=== PATIENT | female | born 1990 | race Two or more races ===

== ENCOUNTER 2017-01-28 12:45 | Inpatient (IN) | payer MEDICAID ==
[~2017-01-28] VITALS: Ht 157.5 cm; Wt 48.1 kg
--- NOTE | 2017-01-28 12:51 | Emergency Room Report ---
History of Present Illness General Chief Complaint: Dyspnea/Respdistress Source: Family Member, Medical Record, EMS Present Illness HPI 18-year-old female, history of GBM, bedbound, baseline mental status confused, PEG tube, coming from senior care for hypoxia. EMS states that nursing staff saw that patient was hypoxic on room air, around 85, improved to 99% with a nonrebreather. Denies any known fever chills nausea vomiting. Patient is DNR/DNI and comfort measures only Allergies: Coded Allergies: No Known Allergies (Unverified , 01/28/17) Patient History Limited by: medical condition Past Medical History: see triage record Past Surgical History: unable to obtain Pertinent Family History: unable to obtain Reviewed Nursing Documentation: PMH: Agreed, PSxH: Agreed Nursing Documentation-PMH Hx Seizures: Yes Review of Systems All Other Systems: limited Physical Exam Vital Signs Date Time Temp Pulse Resp B/P (MAP) Pulse Ox O2 Delivery O2 Flow Rate FiO2 01/28/17 12:41 111 24 106/66 94 Non-Rebreather 15.0 Sp02 EP Interpretation: abnormal - Hypoxic at 88 on room air, 96% on 3 L nasal cannula General Appearance: lethargic, other - Chronically ill-appearing young female, appears to be in respiratory distress, nonverbal however moving extremities on command Head: normocephalic, atraumatic Eyes: bilateral eye normal inspection, bilateral eye PERRL, bilateral eye EOMI ENT: normal ENT inspection, normal pharynx, dry mucus membranes Neck: normal inspection, full range of motion, supple Respiratory: other - Course breath sounds in left lung base, chest symmetrical Cardiovascular #1: normal inspection, normal capillary refill, tachycardia Cardiovascular #2: 2+ radial (R), 2+ radial (L) Gastrointestinal: non-distended, no guarding, other - Soft, nondistended, PEG tube in place, no grimace to deep palpation Musculoskeletal: back normal, non-tender Neurologic: alert, motor strength/tone normal, sensory intact, other - Moaning sounds, moving extremities on command Skin: normal inspection, normal color, no rash, warm/dry, normal turgor Procedures Critical Care Time Critical Care Time 40 minutes of CC time 26YO female with resp distress and hypoxia VS: Tachycardic, tachypneic, hypoxic Sepsis criteria met Airway patent. PLAN: IV access, labs, lactate, Blood/Urine Cx, Abx Anticipate admissionto Tele vs. ROSANA CC time also includes review of labs, review of EMR, discussion with family and paperwork from SNF, d/w hospitalist CC could include dosing of pressors, additional Abx CC time does not include procedures Medical Decision Making Diagnostic Impression: Primary Impression: Respiratory distress Additional Impression: Hypoxia ER Course 18-year-old female with respiratory distress, hypoxia Differential diagnosis Sepsis, UTI, pneumonia DNR/DNI ER course: afebrile rectally 97 Hypoxic on room air, 96% on 3 L nasal cannula Patient given NS at 30cc/kg bolus Patient's BP has remained stable with MAP > 65 CXR cannot r/o L sided infiltrate, insetting of hypoxia and leukocytosis will tx as pneumonia attempted to call patients PMD Dr Slade who did not pecan picker phone. Disposition: Patient will admitted to TELE Patient requires close monitoring of respiratory/hemodynamic status and continuation of IV antibiotics. D/W Hospitalist Dr Armando who covers for patients SNF, accepted admission Please note that this Emergency Department Report was dictated using [employer] carrier technology software, occasionally this can lead to erroneous entry secondary to interpretation by the dictation equipment. Laboratory Tests Test 01/28/17 12:53 01/28/17 13:20 White Blood Count 16.5 K/UL (4.8-10.8) H Red Blood Count 3.98 M/UL (4.20-5.40) L Hemoglobin 13.5 G/DL (12.0-16.0) Hematocrit 39.6 % (37.0-47.0) Mean Corpuscular Volume 99 FL (80-99) Mean Corpuscular Hemoglobin 33.8 PG (27.0-31.0) H Mean Corpuscular Hemoglobin Concent 34.0 G/DL (32.0-36.0) Red Cell Distribution Width 14.2 % (11.6-14.8) Platelet Count 396 K/UL (150-450) Mean Platelet Volume 5.8 FL (6.5-10.1) L Neutrophils (%) (Auto) 78.3 % (45.0-75.0) H Lymphocytes (%) (Auto) 17.4 % (20.0-45.0) L Monocytes (%) (Auto) 3.7 % (1.0-10.0) Eosinophils (%) (Auto) 0.0 % (0.0-3.0) Basophils (%) (Auto) 0.5 % (0.0-2.0) Sodium Level 133 mEQ/L (135-145) L Potassium Level 3.8 mEQ/L (3.4-4.9) Chloride Level 92 mEQ/L (98-107) L Carbon Dioxide Level 27 mEQ/L (20-30) Anion Gap 14 (5-15) Blood Urea Nitrogen 14 mg/dL (7-23) Creatinine 0.4 mg/dL (0.5-0.9) L Estimate Glomerular Filtration Rate > 60 mL/min (>60) Glucose Level 138 mg/dL (74-106) H Lactic Acid Level 2.40 mmol/L (0.66-2.22) H Calcium Level 9.8 mg/dL (8.6-10.2) Total Bilirubin 0.3 mg/dL (0.0-1.2) Aspartate Amino Transferase (AST) 16 U/L (5-40) Alanine Aminotransferase (ALT) 29 U/L (3-33) Alkaline Phosphatase 88 U/L (35-104) Total Creatine Kinase 29 U/L (26-140) Creatine Kinase MB Pending Troponin I < 0.30 ng/mL (<=0.30) Total Protein 7.4 g/dL (6.6-8.7) Albumin 4.1 g/dL (3.5-5.2) Globulin 3.3 g/dL Albumin/Globulin Ratio 1.2 (1.0-2.7) Urine Color Pending Urine Appearance Pending Urine pH Pending Urine Specific [place] Pending Urine Protein Pending Urine Glucose (UA) Pending Urine Ketones Pending Urine Occult Blood Pending Urine Nitrite Pending Urine Bilirubin Pending Urine Urobilinogen Pending Urine Leukocyte Esterase Pending EKG Diagnostic Results Rate: tachycardiac Rhythm: NSR ST Segments: other - Q waves inf leads Rhythm Strip Diag. Results EP Interpretation: yes Rate: 95 Rhythm: NSR, no PVC's, no ectopy Chest X-Ray Diagnostic Results Chest X-Ray Diagnostic Results : Chest X-Ray Ordered: Yes # of Views/Limited/Complete: 1 View Indication: Shortness of Breath Interpretation: no consolidation, other - L hemidiaphragm elevation, cannot r/o L sided infiltrate Impression: Other - L hemidiaphragm elevation, cannot r/o L sided infirlate Electronically Signed by: Electronically signed by Chapin Miramontes MD Last Vital Signs Date Time Temp Pulse Resp B/P (MAP) Pulse Ox O2 Delivery O2 Flow Rate FiO2 01/28/17 12:41 111 24 106/66 94 Non-Rebreather 15.0 Disposition: ADMITTED INPATIENT Condition: Serious Chapin Miramontes M.D. Jan 28, 2017 12:51
[2017-01-28] MEDS ORDERED: NS 1000ml 1,600 ML IVLG ONE (13:00)
[2017-01-28] MEDS ORDERED: KEPPRA LIQ100 MG/1 M GT (13:03)
[2017-01-28] MEDS ORDERED: DOCU LIQUI50 MG/5 M1 GT (13:03)
[2017-01-28] MEDS ORDERED: ACETAMINOPHEN325 M1 GT (13:03)
[2017-01-28] MEDS ORDERED: DULCOLAX10 MG RC (13:03)
[2017-01-28] MEDS ORDERED: LORATADINE5 MG/5 M4 GT (13:03)
[2017-01-28] MEDS ORDERED: DECADRON0.25 MG/2. GT (13:03)
[2017-01-28] MEDS ORDERED: BETHANECHOL CHLO5 MG GT (13:03)
[2017-01-28] MEDS ORDERED: MILK OF MA2400 MG/10 GT (13:03)
[2017-01-28] MEDS ORDERED: FLEET ENEMA133 ML RECTAL (13:03)
[2017-01-28] MEDS ORDERED: ACETAMINOPHEN120 MG RECTAL (13:03)
[2017-01-28] MEDS ORDERED: HYDROCODON-ACE1 EA15 ORAL (13:03)
[2017-01-28] MEDS ORDERED: HEPARIN SO5000 UNIT2 SUBQ (13:03)
[2017-01-28] MEDS ORDERED: DOXAZOSIN MESYLA1 MG GT (13:03)
[2017-01-28] MEDS ORDERED: METAMUCIL660 GM GT (13:12)
[2017-01-28] MEDS ORDERED: NORCO 5-325 TA1 EACH (13:12)
[2017-01-28] MEDS ORDERED: LEXAPRO10 MG GT (13:12)
[2017-01-28] MEDS ORDERED: ZANTAC150 MG GT (13:12)
[2017-01-28] MEDS ORDERED: PROVENTIL HFA6.7 G1 IH (13:12)
[2017-01-28 13:16] LABS: BASOPHILS % (AUTO) 0.5 % (0.0-2.0); LYMPHOCYTES % (AUTO) 17.4 % (20.0-45.0); MEAN CORPUSCULAR HEMOGLOBIN 33.8 PG (27.0-31.0); MEAN CORPUSCULAR VOLUME 99 FL (80-99); MEAN PLATELET VOLUME 5.8 FL (6.5-10.1); MONOCYTES % (AUTO) 3.7 % (1.0-10.0); NEUTROPHILS % (AUTO) 78.3 % (45.0-75.0); PLATELET COUNT 396 K/UL (150-450); RED BLOOD COUNT 3.98 M/UL (4.20-5.40); RED CELL DISTRIBUTION WIDTH 14.2 % (11.6-14.8); WHITE BLOOD COUNT 16.5 K/UL (4.8-10.8)
[2017-01-28] MEDS ORDERED: JEVITY 1.5 CA1000 ML GT (13:23)
[2017-01-28] MEDS ORDERED: AUGMENTIN 875-1 EAC1 GT (13:23)
--- NOTE | 2017-01-28 13:24 | Diagnostic Imaging Report ---
Indication: SOB Technique: One view of the chest Comparison: none Findings: There is pleural fluid at the left lung base. There may be some parenchymal consolidation as well. The right lung and pleural space are clear. Heart is mildly enlarged. Impression: Left-sided pleural effusion. Possible underlying parenchymal consolidation graph mild Cardiolite
[2017-01-28 13:25] VITALS: BP 122/69
[2017-01-28 13:25] LABS: TROPONIN I < 0.30 ng/mL (<=0.30)
[2017-01-28 13:28] LABS: ALANINE AMINOTRANSFERASE 29 U/L (3-33); ALBUMIN/GLOBULIN RATIO 1.2 (1.0-2.7); ANION GAP 14 (5-15); ASPARTATE AMINO TRANSFERASE 16 U/L (5-40); CALCIUM 9.8 mg/dL (8.6-10.2); CARBON DIOXIDE 27 mEQ/L (20-30); CHLORIDE 92 mEQ/L (98-107); CREATININE 0.4 mg/dL (0.5-0.9); GLOMERULAR FILTRATION RATE > 60 mL/min (>60); HEMOLYSIS 0; POTASSIUM 3.8 mEQ/L (3.4-4.9); SODIUM 133 mEQ/L (135-145); TOTAL PROTEIN 7.4 g/dL (6.6-8.7)
[2017-01-28] MEDS ORDERED: Piperacillin/Tazobactam 3.375 GM in NS 110 ML IVPB ONE (13:30)
[2017-01-28] MEDS ORDERED: Vancomycin 1250mg/D5W 250ml 250 ML IVPB ONE (13:30)
[2017-01-28 13:31] LABS: REFLEX LACTIC ACID YES OR NO YES
[2017-01-28] MEDS ORDERED: Zosyn 3.375gm inj ONE (13:31)
[2017-01-28 13:38] LABS: CKMB 2.2 ng/mL (< 3.8)
[2017-01-28 13:42] LABS: APPEARANCE,URINE CLOUDY; KETONES,URINE NEGATIVE (NEGATIVE); LEUKOCYTE ESTERASE ,URINE 3+ (NEGATIVE); NITRITE,URINE NEGATIVE (NEGATIVE); PH,URINE 7 (4.5-8.0); PROTEIN,URINE 1+ (NEGATIVE); UROBILINOGEN,URINE 1 MG/DL (0.0-1.0)
[2017-01-28 13:53] LABS: BACTERIA,URINE MANY /HPF; RBC,URINE 15-20 /HPF (0 - 2); SQUAMOUS EPITHELIAL CELL,UR OCCASIONAL /LPF (NONE/OCC)
[2017-01-28 13:54] LABS: AMORPHOUS SEDIMENT,UR MODERATE /LPF; CALCIUM OXALATE CRYSTALS,UR OCCASIONAL /LPF; MUCUS,URINE FEW /LPF (NONE/OCC); YEAST,URINE MODERATE /HPF
[2017-01-28 14:21] LABS: ABG ALLEN TEST POSITIVE; ABG BASE EXCESS -3.1; ABG PCO2 40.3 mmHg (35.0-45.0)
[2017-01-28 14:38] VITALS: BP 148/88
--- NOTE | 2017-01-28 14:56 | History and Physical ---
History of Present Illness General Date patient seen: Jan 29, 2017 Reason for Hospitalization: Dyspnea/Respdistress Present Illness HPI 18-year-old female with history of GBM, bedbound, baseline mental status confused, PEG tube, coming from long-term for hypoxia. EMS states that nursing staff saw that patient was hypoxic on room air, around 85, improved to 99% with a nonrebreather. Pt was diagnosed to have pneumonia and sepsis and admitted for further evaluation. Allergies: Coded Allergies: No Known Allergies (Unverified , 01/28/17) Medication History Scheduled Amoxicillin/Potassium Clav 875-125* (Augmentin 875-125 Tablet*), 1 TAB GT TWICE A DAY, (Reported) Bethanechol Chl* (Bethanechol Chloride*), 5 MG GT THREE TIMES A DAY, (Reported) Bisacodyl (Dulcolax), 10 MG RC DAILY, (Reported) Dexamethasone (Dexamethasone), 2 MG GT BID, (Reported) Docusate Sodium (Docu Liquid), 100 MG GT BID, (Reported) Doxazosin Mesylate* (Doxazosin Mesylate*), 1 MG GT DAILY, (Reported) Escitalopram Oxalate* (Lexapro*), 10 MG GT DAILY, (Reported) Heparin Sod (Porcine) (Heparin Sodium*), 5,000 UNITS SUBQ EVERY 12 HOURS, ( Reported) Levetiracetam (Keppra), 1,000 MG GT BID, (Reported) Loratadine (Loratadine), 10 MG GT DAILY, (Reported) Magnesium Hydroxide* (Milk Of Magnesia*), 30 ML GT DAILY, (Reported) Na Phos,M-B/Na Phos,Di-Ba* (Fleet Enema*), 133 ML RECTAL DAILY, (Reported) Psyllium Husk (Metamucil), 15 ML GT DAILY, (Reported) Ranitidine Hcl* (Zantac*), 300 MG GT TWICE A DAY, (Reported) Scheduled PRN Acetaminophen* (Acetaminophen 325MG Tablet*), 650 MG GT Q6H PRN for Mild Pain ( Pain Scale 1-3), (Reported) Acetaminophen* (Tylenol*), 650 MG RECTAL Q6HR PRN for Mild Pain/Temp > 100.5, ( Reported) Albuterol Sulfate (Proventil Hfa), 6.7 GM IH EVERY 6 HOURS PRN for Shortness of Breath, (Reported) Hydrocodone Bit/Acetaminophen 5-325* ([place] 5-325*), 2 TAB Q4H PRN for For Pain, (Reported) Hydrocodone/Acetaminophen 5-325* (Hydrocodone/Acetaminophen 5-325*), 1 TAB ORAL Q4H PRN for For Pain, (Reported) Miscellaneous Medications Lactose-Reduced Food/Fiber (Jevity 1.5 Rick Liquid), 60 ML GT, (Reported) Patient History Healthcare decision maker JAMESKYLE PRINCELES (MOTHER) Resuscitation status Advanced Directive on File Past Medical/Surgical History Past Medical/Surgical History: (1) Glioblastoma (2) Feeding by G-tube Review of Systems All Other Systems: negative except mentioned in HPI Physical Exam General Appearance: WD/WN Lines, tubes and drains: peripheral HEENT: normocephalic, atraumatic Neck: non-tender, normal alignment Respiratory/Chest: chest wall non-tender, lungs clear Cardiovascular/Chest: normal peripheral pulses, normal rate Abdomen: normal bowel sounds, soft Genitourinary/Rectal: normal genital exam, normal prostate exam Extremities: normal range of motion, non-tender Last 24 Hour Vital Signs Date Time Temp Pulse Resp B/P (MAP) Pulse Ox O2 Delivery O2 Flow Rate FiO2 01/28/17 13:25 97.9 94 14 122/69 96 Nasal Cannula 3.0 01/28/17 12:51 94 16 Nasal Cannula 3.0 01/28/17 12:41 97.9 111 24 106/66 94 Non-Rebreather 15.0 Laboratory Tests Test 01/28/17 12:53 01/28/17 13:20 01/28/17 14:09 01/28/17 14:10 White Blood Count 16.5 K/UL (4.8-10.8) H Red Blood Count 3.98 M/UL (4.20-5.40) L Hemoglobin 13.5 G/DL (12.0-16.0) Hematocrit 39.6 % (37.0-47.0) Mean Corpuscular Volume 99 FL (80-99) Mean Corpuscular Hemoglobin 33.8 PG (27.0-31.0) H Mean Corpuscular Hemoglobin Concent 34.0 G/DL (32.0-36.0) Red Cell Distribution Width 14.2 % (11.6-14.8) Platelet Count 396 K/UL (150-450) Mean Platelet Volume 5.8 FL (6.5-10.1) L Neutrophils (%) (Auto) 78.3 % (45.0-75.0) H Lymphocytes (%) (Auto) 17.4 % (20.0-45.0) L Monocytes (%) (Auto) 3.7 % (1.0-10.0) Eosinophils (%) (Auto) 0.0 % (0.0-3.0) Basophils (%) (Auto) 0.5 % (0.0-2.0) Sodium Level 133 mEQ/L (135-145) L Potassium Level 3.8 mEQ/L (3.4-4.9) Chloride Level 92 mEQ/L (98-107) L Carbon Dioxide Level 27 mEQ/L (20-30) Anion Gap 14 (5-15) Blood Urea Nitrogen 14 mg/dL (7-23) Creatinine 0.4 mg/dL (0.5-0.9) L Estimat Glomerular Filtration Rate > 60 mL/min (>60) Glucose Level 138 mg/dL (74-106) H Lactic Acid Level 2.40 mmol/L (0.66-2.22) H 3.30 mmol/L (0.66-2.22) H Calcium Level 9.8 mg/dL (8.6-10.2) Total Bilirubin 0.3 mg/dL (0.0-1.2) Aspartate Amino Transf (AST/SGOT) 16 U/L (5-40) Alanine Aminotransferase (ALT/SGPT) 29 U/L (3-33) Alkaline Phosphatase 88 U/L (35-104) Total Creatine Kinase 29 U/L (26-140) Creatine Kinase MB 2.2 ng/mL (< 3.8) Creatine Kinase MB Relative Index 7.5 Troponin I < 0.30 ng/mL (<=0.30) Total Protein 7.4 g/dL (6.6-8.7) Albumin 4.1 g/dL (3.5-5.2) Globulin 3.3 g/dL Albumin/Globulin Ratio 1.2 (1.0-2.7) Urine Color Yellow Urine Appearance Cloudy Urine pH 7 (4.5-8.0) Urine Specific [place] 1.010 (1.005-1.035) Urine Protein 1+ (NEGATIVE) H Urine Glucose (UA) Negative (NEGATIVE) Urine Ketones Negative (NEGATIVE) Urine Occult Blood 5+ (NEGATIVE) H Urine Nitrite Negative (NEGATIVE) Urine Bilirubin Negative (NEGATIVE) Urine Urobilinogen 1 MG/DL (0.0-1.0) H Urine Leukocyte Esterase 3+ (NEGATIVE) H Urine RBC 15-20 /HPF (0 - 2) H Urine WBC 5-10 /HPF (0 - 2) H Urine Squamous Epithelial Cells Occasional /LPF Urine Calcium Oxalate Crystals Occasional /LPF (NONE) Urine Amorphous Sediment Moderate /LPF (NONE) H Urine Bacteria Many /HPF (NONE) H Urine Mucus Few /LPF (NONE/OCC) H Urine Yeast Moderate /HPF (NONE) H Arterial Blood pH 7.350 (7.350-7.450) Arterial Blood Partial Pressure CO2 40.3 mmHg (35.0-45.0) Arterial Blood Partial Pressure O2 71.0 mmHg (75.0-100.0) L Arterial Blood HCO3 22.2 mmol/L (22.0-26.0) Arterial Blood Oxygen Saturation 92.5 % (92.0-98.0) Arterial Blood Base Excess -3.1 [place] Test Positive Height (Feet): 5 Height (Inches): 2.00 Weight (Pounds): 120 Medications Current Medications Medications (Trade) Dose Ordered Sig/Valeria Route PRN Reason Start Time Stop Time Status Last Admin Dose Admin Vancomycin HCl/ Dextrose 250 ml @ 166.667 mls/hr Q24H ONCE IVPB 01/28/17 13:30 01/28/17 14:59 01/28/17 14:32 Assessment/Plan Problem List: (1) Respiratory distress ICD Codes: R06.00 - Dyspnea, unspecified SNOMED: 370897359 (2) Pneumonia ICD Codes: J18.9 - Pneumonia, unspecified organism SNOMED: 780482932 (3) Glioblastoma ICD Codes: C71.9 - Malignant neoplasm of brain, unspecified SNOMED: 54393879, 15139765, 792944454 (4) Feeding by G-tube ICD Codes: Z93.1 - Gastrostomy status SNOMED: 912952924, 007227395 Assessment/Plan respiratory treatment IV abx check cultures continue feeding DNR and DNI ZAIN SOARES Jan 28, 2017 14:56
[2017-01-28] MEDS ORDERED: Promethazine/Codeine 5ml UD ORAL PRN (15:00)
[2017-01-28] MEDS ORDERED: Mylanta II UD 30ml ORAL PRN (15:00)
[2017-01-28] MEDS ORDERED: Nitroglycerin Subl 0.4mg tab (Bottle Of 25) SL PRN (15:00)
[2017-01-28] MEDS ORDERED: Miralax 17gm pkt ORAL PRN (15:00)
[2017-01-28] MEDS ORDERED: DuoNeb 0.5-3(2.5)mg/3ml neb HHN PRN (15:00)
[2017-01-28 15:42] VITALS: BP 129/83
[2017-01-28 20:00] VITALS: BP 136/96
[2017-01-28] MEDS ORDERED: Acetaminophen 650mg/20.3ml GT PRN (21:15)
[2017-01-28] MEDS ORDERED: Mylanta II UD 30ml GT PRN (21:30)
[2017-01-28] MEDS ORDERED: Miralax 17gm pkt GT PRN (21:30)
[2017-01-28] MEDS: Cefepime HCl 1 GM in D5W 55 ML IV SCH (21:36)
[2017-01-28] MEDS: levETIRAcetam 500mg/5ml Liquid GT SCH (21:36)
--- NOTE | 2017-01-28 21:37 | Consultation ---
Consult Note Consult Note ID dic # [id number] SINDI LEWIS M.D. Jan 28, 2017 21:37
[2017-01-28] MEDS: Heparin 5000 units/ml inj SUBQ SCH (21:39)
[2017-01-28] MEDS: HYDROmorphone 1mg/ml Carpuject IVP PRN (21:40)
[2017-01-28] MEDS ORDERED: Promethazine/Codeine 5ml UD GT PRN (21:45)
[2017-01-28] MEDS ORDERED: D5NS 1,000 ML IV SCH (21:45)
[2017-01-28] MEDS ORDERED: Fleet's Mineral Oil Enema RECTAL SCH (22:00)
[2017-01-28] MEDS: Vancomycin 750mg/NS 250ml IVPB SCH (22:45)
[2017-01-29 00:16] VITALS: BP 112/78
--- NOTE | 2017-01-29 01:15 | Consultation ---
DATE OF CONSULTATION: INFECTIOUS DISEASES CONSULTATION CONSULTING PHYSICIAN: Abiodun Hicks M.D. REQUESTING PHYSICIAN: Roosevelt Armando M.D. REASON FOR CONSULTATION: Management of the patient with pneumonia, sepsis, and antibiotic management. HISTORY OF PRESENT ILLNESS: The patient is a 26-year-old British speaking female with multiple medical problems including brain tumor, paraplegia, seizure disorder, status post PEG tube who was admitted to this medical center due to shortness of breath. The patient was admitted with an impression of pneumonia, has been started on IV antibiotics, and an Infectious Diseases consultation has been requested for evaluation of the patient and antibiotic management. PAST MEDICAL HISTORY: 1. History of brain tumor. 2. History of seizure disorder. 3. History of PEG tube placement. 4. History of paraplegia. MEDICATION: IV vancomycin and cefepime. ALLERGIES: No known drug allergies. SOCIAL HISTORY: The patient lives in a residential. FAMILY HISTORY: Noncontributory. REVIEW OF SYSTEMS: limited. Most of the information has been able to gather as mentioned above. The patient has significant cough with sputum production. PHYSICAL EXAMINATION: VITAL SIGNS: Temperature 96.6, blood pressure 148/88, pulse rate 68, respiratory rate 18. HEENT: No pale conjunctiva. No icterus. NECK: No lymphadenopathy. CHEST: Coarse breathing sounds. HEART: S1 and S2. ABDOMEN: Soft. PEG tube in place. At the time of examination nontender. No organomegaly. EXTREMITIES: No cyanosis. NEUROLOGIC: Awake. LABORATORY FINDINGS: White blood cells 16, hemoglobin 13, and platelets 396,000. UA 15 to 20 red blood cells, 5 to 10 white blood cells. BUN of 14 and creatinine 0.8. Liver function tests unremarkable. Chest x-ray is pending. ASSESSMENT AND PLAN: The patient is a 26-year-old female with multiple medical problems who was admitted to this medical center with: 1. Leukocytosis. 2. Possible sepsis. 3. Possible pneumonia (chest x-ray pending). 4. Rule out bacteremia. PLAN: 1. We will continue the patient on IV vancomycin and cefepime. 2. Monitor CBC. 3. Monitor BMP. 4. Monitor cultures (blood, sputum, urine). 5. Monitor chest x-ray. 6. Based on the patient's clinical course and labs, we will do further recommendations. Thank you, Dr. Armando, for allowing me to participate in the care of this patient. I will follow the patient with you during this hospitalization. Abiodun Hicks M.D. DR: ASHANTI JOB#: [id number] CC:
[2017-01-29 04:00] VITALS: BP 134/81
[2017-01-29] MEDS: HYDROmorphone 1mg/ml Carpuject IVP PRN ×2 (05:47→09:54)
[2017-01-29] MEDS: Vancomycin 750mg/NS 250ml IVPB SCH ×2 (05:48→14:34)
[2017-01-29 08:14] VITALS: BP 130/92
[2017-01-29] MEDS: Cefepime HCl 1 GM in D5W 55 ML IV SCH ×2 (08:51→22:01)
[2017-01-29] MEDS: levETIRAcetam 500mg/5ml Liquid GT SCH ×2 (08:52→22:02)
[2017-01-29] MEDS: Lactulose 20gm/30ml UDC GT SCH ×3 (08:52→17:43)
[2017-01-29] MEDS: Docusate 100mg/10ml Liq GT SCH ×3 (08:52→17:43)
[2017-01-29] MEDS: Heparin 5000 units/ml inj SUBQ SCH ×2 (08:54→22:05)
[2017-01-29] MEDS ORDERED: Docusate 100mg cap ORAL SCH ×2 (09:00→18:00)
[2017-01-29 09:44] LABS: BASOPHILS % (AUTO) 0.3 % (0.0-2.0); EOSINOPHILS % (AUTO) 0.1 % (0.0-3.0); LYMPHOCYTES % (AUTO) 19.4 % (20.0-45.0); MEAN CORPUSCULAR HEMOGLOBIN 34.6 PG (27.0-31.0); MEAN CORPUSCULAR HGB CONC 34.9 G/DL (32.0-36.0); MEAN CORPUSCULAR VOLUME 99 FL (80-99); MEAN PLATELET VOLUME 5.6 FL (6.5-10.1); MONOCYTES % (AUTO) 1.9 % (1.0-10.0); NEUTROPHILS % (AUTO) 78.4 % (45.0-75.0); PLATELET COUNT 412 K/UL (150-450); RED BLOOD COUNT 4.36 M/UL (4.20-5.40); RED CELL DISTRIBUTION WIDTH 13.5 % (11.6-14.8); WHITE BLOOD COUNT 13.5 K/UL (4.8-10.8)
[2017-01-29 09:57] LABS: ANION GAP 14 (5-15); CALCIUM 9.9 mg/dL (8.6-10.2); CARBON DIOXIDE 25 mEQ/L (20-30); CHLORIDE 95 mEQ/L (98-107); CREATININE 0.3 mg/dL (0.5-0.9); GLOMERULAR FILTRATION RATE > 60 mL/min (>60); HEMOLYSIS 4; PHOSPHORUS 3.6 mg/dL (2.5-4.8); POTASSIUM 4.1 mEQ/L (3.4-4.9); SODIUM 134 mEQ/L (135-145)
[2017-01-29 11:29] VITALS: BP 135/75
--- NOTE | 2017-01-29 13:10 | Pulmonology Progress Note ---
Assessment/Plan Problems: (1) Respiratory distress (2) Pneumonia (3) Glioblastoma (4) Feeding by G-tube Assessment/Plan improving mental status stable. continue abx med/surg laxatives. Subjective ROS Limited/Unobtainable: No Constitutional: Reports: no symptoms HEENT: Repors: no symptoms Respiratory: Reports: no symptoms Cardiovascular: Reports: no symptoms Allergies: Coded Allergies: No Known Allergies (Unverified , 01/28/17) Objective Last 24 Hour Vital Signs Date Time Temp Pulse Resp B/P (MAP) Pulse Ox O2 Delivery O2 Flow Rate FiO2 01/29/17 11:29 97.5 88 18 135/75 100 Nasal Cannula 2.0 01/29/17 08:14 96.8 80 18 130/92 100 Nasal Cannula 3.0 01/29/17 08:08 72 16 Nasal Cannula 2.0 01/29/17 08:08 98 Nasal Cannula 2.0 01/29/17 08:07 Nasal Cannula 2.0 01/29/17 07:58 75 01/29/17 04:00 73 01/29/17 04:00 97.0 79 20 134/81 97 Room Air 01/29/17 00:16 97.0 77 20 112/78 98 01/29/17 00:00 72 01/28/17 21:34 97 Nasal Cannula 3.0 32 01/28/17 21:34 Nasal Cannula 3.0 32 01/28/17 21:32 84 20 Nasal Cannula 3.0 32 01/28/17 20:00 77 01/28/17 20:00 97.9 84 20 136/96 97 Nasal Cannula 2.0 01/28/17 16:00 92 01/28/17 15:42 96.6 87 18 129/83 95 Nasal Cannula 3.0 01/28/17 14:38 97.9 94 16 148/88 95 Nasal Cannula 3.0 01/28/17 14:38 94 16 148/88 95 Nasal Cannula 3.0 01/28/17 13:25 97.9 94 14 122/69 96 Nasal Cannula 3.0 Intake and Output 01/29/17 01/30/17 19:00 07:00 Intake Total 279 ml Balance 279 ml Intake IV Total 279 ml General Appearance: WD/WN HEENT: normocephalic, atraumatic Respiratory/Chest: chest wall non-tender, lungs clear Breasts: no masses Cardiovascular: normal peripheral pulses Abdomen: normal bowel sounds, soft, non tender Genitourinary: normal external genitalia Extremities: no cyanosis Neurologic/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: 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 normal Lymphatic: no neck adenopathy Musculoskeletal: normal muscle bulk Microbiology Date/Time Source Procedure Growth Status 01/28/17 13:20 Urine,Clean Catch Urine Culture - Preliminary Gram Negative Bacillus 1 Resulted Laboratory Tests 01/28/17 13:20: Urine Color Yellow, Urine Appearance Cloudy, Urine pH 7, Urine Specific [place] 1.010, Urine Protein 1+H, Urine Glucose (UA) Negative, Urine Ketones Negative, Urine Occult Blood 5+H, Urine Nitrite Negative, Urine Bilirubin Negative, Urine Urobilinogen 1H, Urine Leukocyte Esterase 3+H, Urine RBC 15-20H, Urine WBC 5-10H , Urine Squamous Epithelial Cells Occasional, Urine Calcium Oxalate Crystals Occasional, Urine Amorphous Sediment ModerateH, Urine Bacteria ManyH, Urine Mucus FewH, Urine Yeast ModerateH 01/28/17 14:09: Lactic Acid Level 3.30H 01/28/17 14:10: Arterial Blood pH 7.350, Arterial Blood Partial Pressure CO2 40.3, Arterial Blood Partial Pressure O2 71.0L, Arterial Blood HCO3 22.2, Arterial Blood Oxygen Saturation 92.5, Arterial Blood Base Excess -3.1, [place] Test Positive 01/29/17 09:25: White Blood Count 13.5H, Red Blood Count 4.36, Hemoglobin 15.1, Hematocrit 43.2 , Mean Corpuscular Volume 99, Mean Corpuscular Hemoglobin 34.6H, Mean Corpuscular Hemoglobin Concent 34.9, Red Cell Distribution Width 13.5, Platelet Count 412, Mean Platelet Volume 5.6L, Neutrophils (%) (Auto) 78.4H, Lymphocytes (%) (Auto) 19.4L, Monocytes (%) (Auto) 1.9, Eosinophils (%) (Auto) 0.1, Basophils (%) (Auto) 0.3, Sodium Level 134L, Potassium Level 4.1, Chloride Level 95L, Carbon Dioxide Level 25, Anion Gap 14, Blood Urea Nitrogen 9, Creatinine 0.3L, Estimat Glomerular Filtration Rate > 60, Glucose Level 137H, Calcium Level 9.9, Phosphorus Level 3.6, Albumin 3.7 Current Medications Medications (Trade) Dose Ordered Sig/Valeria Route PRN Reason Start Time Stop Time Status Last Admin Dose Admin Acetaminophen (Tylenol) 650 mg Q4H PRN GT Mild Pain/Temp > 100.5 01/28/17 21:15 02/27/17 21:14 Al Hydroxide/Mg Hydroxide (Mylanta II) 30 ml Q6H PRN GT dyspepsia 01/28/17 21:30 02/27/17 14:59 Albuterol/ Ipratropium (DuoNeb 0.5-3(2.5)mg/3ml) 3 ml Q4H PRN HHN Shortness of Breath 01/28/17 15:00 02/02/17 14:59 Cefepime HCl 1 gm/ Dextrose 55 ml @ 110 mls/hr EVERY 12 HOURS IV 01/28/17 21:00 02/04/17 20:59 01/29/17 08:51 Dexamethasone (Decadron) 2 mg BID GT 01/28/17 18:00 02/27/17 17:59 01/29/17 08:52 Dextrose/Sodium Chloride 1,000 ml @ 50 mls/hr Q20H IV 01/28/17 21:45 02/27/17 21:44 01/28/17 21:38 Docusate Sodium (Colace) 100 mg THREE TIMES A DAY GT 01/29/17 09:00 02/28/17 08:59 01/29/17 12:41 Heparin Sodium (Porcine) (Heparin 5000 units/ml) 5,000 units EVERY 12 HOURS SUBQ 01/28/17 21:00 02/27/17 20:59 01/29/17 08:54 Hydromorphone HCl (Dilaudid) 1 mg Q4H PRN IVP For Pain 4-10 01/28/17 21:15 02/04/17 21:14 01/29/17 09:54 Lactulose (Cephulac) 30 gm THREE TIMES A DAY GT 01/29/17 09:00 02/28/17 08:59 01/29/17 12:42 Levetiracetam (Keppra) 1,000 mg Q12HR GT 01/28/17 21:00 02/27/17 20:59 01/29/17 08:52 Mineral Oil (Fleet's Mineral Oil Enema) 133 ml EVERY OTHER DAY RECTAL 01/28/17 22:00 02/27/17 21:59 Nitroglycerin (Ntg) 0.4 mg Q5MIN X 3DOSES PRN SL Prn Chest Pain 01/28/17 15:00 02/27/17 14:59 Ondansetron HCl (Zofran) 4 mg Q6H PRN IVP Nausea & Vomiting 01/28/17 15:00 02/27/17 14:59 Polyethylene Glycol (Miralax) 17 gm BEDTIME GT 01/29/17 21:00 02/28/17 20:59 Polyethylene Glycol (Miralax) 17 gm DAILYPRN PRN GT Constipation 01/28/17 21:30 02/27/17 14:59 Promethazine HCl/ Codeine (Phenergan with Codeine) 5 ml Q4H PRN GT For Cough 01/28/17 21:45 02/27/17 14:59 Sennosides (Senokot) 8.6 mg DAILY ORAL 01/29/17 09:00 02/28/17 08:59 01/29/17 08:52 Temazepam (Restoril) 15 mg HSPRN PRN GT Insomnia 01/28/17 21:45 02/04/17 14:59 Vancomycin HCl (Vanco rx to dose) 1 ea DAILY PRN MISC Per rx protocol 01/28/17 15:00 02/27/17 14:59 Vancomycin/Sodium Chloride 250 ml @ 166.667 mls/hr Q8HR IVPB 01/28/17 22:00 02/02/17 21:59 01/29/17 05:48 ZAIN SOARES Jan 29, 2017 13:10
[2017-01-29 15:35] VITALS: BP 130/75
[2017-01-29] MEDS ORDERED: Nitroglycerin Subl 0.4mg tab (Bottle Of 25) SL PRN (17:00)
[2017-01-29] MEDS ORDERED: DuoNeb 0.5-3(2.5)mg/3ml neb HHN PRN (17:00)
[2017-01-29] MEDS ORDERED: Miralax 17gm pkt GT PRN (17:00)
[2017-01-29] MEDS ORDERED: Acetaminophen 650mg/20.3ml GT PRN (17:15)
[2017-01-29] MEDS: D5NS 1,000 ML IV SCH (17:43)
[2017-01-29] MEDS ORDERED: Promethazine/Codeine 5ml UD GT PRN (17:45)
--- NOTE | 2017-01-29 17:58 | Cardiology Report ---
APPROVED REPORT EKG Measurement Heart [id number] MI [id number] [id number] Sinus tachycardia with short MI Rightward axis Inferior infarct, age undetermined Abnormal ECG
[2017-01-29] MEDS ORDERED: Lactulose 20gm/30ml UDC ORAL SCH (18:00)
--- NOTE | 2017-01-29 18:52 | Infectious Diseases Prog Note ---
Assessment/Plan Assessment/Plan ASSESSMENT The patient is a 26-year-old female with Leukocytosis Possible sepsis. Possible pneumonia (chest x-ray: eft-sided pleural effusion. Possible underlying parenchymal consolidation graph mild Cardiolite ). Rule out bacteremia. Proable UTI : UCx: GMR History of brain tumor. History of seizure disorder. History of PEG tube placement. History of paraplegia PLAN: continue the patient on IV vancomycin and cefepime d# 2 Monitor CBC Monitor BMP. Monitor cultures (blood, sputum, urine). Monitor chest x-ray. Subjective Cardiovascular: Reports: palpitations Allergies: Coded Allergies: No Known Allergies (Unverified , 01/28/17) Subjective no new complain Objective Vital Signs Last 24 Hour Vital Signs Date Time Temp Pulse Resp B/P (MAP) Pulse Ox O2 Delivery O2 Flow Rate FiO2 01/29/17 15:35 96.3 88 18 130/75 98 Nasal Cannula 01/29/17 15:17 92 01/29/17 11:47 80 01/29/17 11:29 97.5 88 18 135/75 100 Nasal Cannula 2.0 01/29/17 08:14 96.8 80 18 130/92 100 Nasal Cannula 3.0 01/29/17 08:08 72 16 Nasal Cannula 2.0 01/29/17 08:08 98 Nasal Cannula 2.0 01/29/17 08:07 Nasal Cannula 2.0 01/29/17 07:58 75 01/29/17 04:00 73 01/29/17 04:00 97.0 79 20 134/81 97 Room Air 01/29/17 00:16 97.0 77 20 112/78 98 01/29/17 00:00 72 01/28/17 21:34 97 Nasal Cannula 3.0 32 01/28/17 21:34 Nasal Cannula 3.0 32 01/28/17 21:32 84 20 Nasal Cannula 3.0 32 01/28/17 20:00 77 01/28/17 20:00 97.9 84 20 136/96 97 Nasal Cannula 2.0 Height (Feet): 5 Height (Inches): 2.00 Weight (Pounds): 106 HEENT: anicteric Respiratory/Chest: no respiratory distress Cardiovascular: regularly irregular Abdomen: no organomegaly Microbiology Date/Time Source Procedure Growth Status 01/28/17 13:20 Urine,Clean Catch Urine Culture - Preliminary Gram Negative Bacillus 1 Resulted Laboratory Tests Test 01/29/17 09:25 White Blood Count 13.5 K/UL (4.8-10.8) H Red Blood Count 4.36 M/UL (4.20-5.40) Hemoglobin 15.1 G/DL (12.0-16.0) Hematocrit 43.2 % (37.0-47.0) Mean Corpuscular Volume 99 FL (80-99) Mean Corpuscular Hemoglobin 34.6 PG (27.0-31.0) H Mean Corpuscular Hemoglobin Concent 34.9 G/DL (32.0-36.0) Red Cell Distribution Width 13.5 % (11.6-14.8) Platelet Count 412 K/UL (150-450) Mean Platelet Volume 5.6 FL (6.5-10.1) L Neutrophils (%) (Auto) 78.4 % (45.0-75.0) H Lymphocytes (%) (Auto) 19.4 % (20.0-45.0) L Monocytes (%) (Auto) 1.9 % (1.0-10.0) Eosinophils (%) (Auto) 0.1 % (0.0-3.0) Basophils (%) (Auto) 0.3 % (0.0-2.0) Sodium Level 134 mEQ/L (135-145) L Potassium Level 4.1 mEQ/L (3.4-4.9) Chloride Level 95 mEQ/L (98-107) L Carbon Dioxide Level 25 mEQ/L (20-30) Anion Gap 14 (5-15) Blood Urea Nitrogen 9 mg/dL (7-23) Creatinine 0.3 mg/dL (0.5-0.9) L Estimat Glomerular Filtration Rate > 60 mL/min (>60) Glucose Level 137 mg/dL (74-106) H Calcium Level 9.9 mg/dL (8.6-10.2) Phosphorus Level 3.6 mg/dL (2.5-4.8) Albumin 3.7 g/dL (3.5-5.2) Current Medications Medications (Trade) Dose Ordered Sig/Valeria Route PRN Reason Start Time Stop Time Status Last Admin Dose Admin Acetaminophen (Tylenol) 650 mg Q4H PRN GT Mild Pain/Temp > 100.5 01/29/17 17:15 02/27/17 21:14 Al Hydroxide/Mg Hydroxide (Mylanta II) 30 ml Q6H PRN GT dyspepsia 01/29/17 21:30 02/27/17 14:59 Albuterol/ Ipratropium (DuoNeb 0.5-3(2.5)mg/3ml) 3 ml Q4H PRN HHN Shortness of Breath 01/29/17 17:00 02/02/17 16:59 Bisacodyl (Dulcolax) 10 mg DAILYPRN PRN RECTAL Unrelieved Constipation 01/29/17 17:00 02/28/17 16:59 Cefepime HCl 1 gm/ Dextrose 55 ml @ 110 mls/hr EVERY 12 HOURS IV 01/29/17 21:00 02/04/17 20:59 Dexamethasone (Decadron) 2 mg BID GT 01/29/17 18:00 02/27/17 17:59 01/29/17 17:43 Dextrose/Sodium Chloride 1,000 ml @ 50 mls/hr Q20H IV 01/29/17 17:30 02/27/17 17:29 01/29/17 17:43 Docusate Sodium (Colace) 100 mg THREE TIMES A DAY GT 01/29/17 18:00 02/28/17 08:59 01/29/17 17:43 Heparin Sodium (Porcine) (Heparin 5000 units/ml) 5,000 units EVERY 12 HOURS SUBQ 01/29/17 21:00 02/27/17 20:59 Hydromorphone HCl (Dilaudid) 1 mg Q4H PRN IVP For Pain 4-10 01/29/17 17:15 02/04/17 21:14 Lactulose (Cephulac) 30 gm THREE TIMES A DAY GT 01/29/17 18:00 02/28/17 08:59 01/29/17 17:43 Levetiracetam (Keppra) 1,000 mg Q12HR GT 01/29/17 21:00 02/27/17 20:59 Mineral Oil (Fleet's Mineral Oil Enema) 133 ml EVERY OTHER DAY RECTAL 01/31/17 09:00 03/02/17 08:59 Nitroglycerin (Ntg) 0.4 mg Q5MIN X 3DOSES PRN SL Prn Chest Pain 01/29/17 17:00 02/27/17 14:59 Ondansetron HCl (Zofran) 4 mg Q6H PRN IVP Nausea & Vomiting 01/29/17 17:00 02/27/17 16:59 Polyethylene Glycol (Miralax) 17 gm BEDTIME GT 01/29/17 21:00 02/28/17 20:59 Polyethylene Glycol (Miralax) 17 gm DAILYPRN PRN GT Constipation 01/29/17 17:00 02/27/17 16:59 Promethazine HCl/ Codeine (Phenergan with Codeine) 5 ml Q4H PRN GT For Cough 01/29/17 17:45 02/27/17 14:59 Sennosides (Senokot) 8.6 mg DAILY ORAL 01/30/17 09:00 02/28/17 08:59 Temazepam (Restoril) 15 mg HSPRN PRN GT Insomnia 01/29/17 17:00 02/04/17 16:59 Vancomycin HCl (Vanco rx to dose) 1 ea DAILY PRN MISC Per rx protocol 01/30/17 09:00 02/27/17 14:59 Vancomycin/Sodium Chloride 250 ml @ 166.667 mls/hr Q8HR IVPB 01/29/17 22:00 02/02/17 21:59 SINDI LEWIS M.D. Jan 29, 2017 18:52
[2017-01-29 20:00] VITALS: BP 117/77
[2017-01-29] MEDS ORDERED: Tubing IV Secondary IV ONE (20:06)
[2017-01-29] MEDS ORDERED: D5NS 1000ml IV ONE (20:06)
[2017-01-29] MEDS ORDERED: NS 275ml ONE (20:06)
[2017-01-29] MEDS ORDERED: Miralax 17gm pkt ORAL SCH (21:00)
[2017-01-29] MEDS ORDERED: Miralax 17gm pkt GT SCH (21:00)
[2017-01-29] MEDS ORDERED: Mylanta II UD 30ml GT PRN (21:30)
[2017-01-29] MEDS ORDERED: Vancomycin 750mg/NS 250ml 250 ML IVPB SCH (22:00)
[2017-01-29] MEDS: Miralax 17gm pkt GT SCH (22:02)
[2017-01-30] VITALS (8 sets, daily range): BP systolic 95–143; BP diastolic 48–102
[2017-01-30] MEDS: HYDROmorphone 1mg/ml Carpuject IVP PRN ×3 (02:27→23:09)
[2017-01-30 06:40] LABS: BASOPHILS % (AUTO) 0.5 % (0.0-2.0); EOSINOPHILS % (AUTO) 0.1 % (0.0-3.0); LYMPHOCYTES % (AUTO) 14.6 % (20.0-45.0); MEAN CORPUSCULAR HEMOGLOBIN 34.8 PG (27.0-31.0); MEAN CORPUSCULAR HGB CONC 34.9 G/DL (32.0-36.0); MEAN CORPUSCULAR VOLUME 100 FL (80-99); MEAN PLATELET VOLUME 5.2 FL (6.5-10.1); MONOCYTES % (AUTO) 3.7 % (1.0-10.0); NEUTROPHILS % (AUTO) 81.2 % (45.0-75.0); PLATELET COUNT 436 K/UL (150-450); RED BLOOD COUNT 3.79 M/UL (4.20-5.40); RED CELL DISTRIBUTION WIDTH 13.9 % (11.6-14.8); WHITE BLOOD COUNT 14.3 K/UL (4.8-10.8)
[2017-01-30 06:52] LABS: ALANINE AMINOTRANSFERASE 22 U/L (3-33); ANION GAP 14 (5-15); ASPARTATE AMINO TRANSFERASE 17 U/L (5-40); CALCIUM 9.1 mg/dL (8.6-10.2); CARBON DIOXIDE 25 mEQ/L (20-30); CHLORIDE 95 mEQ/L (98-107); CREATININE 0.3 mg/dL (0.5-0.9); GLOMERULAR FILTRATION RATE > 60 mL/min (>60); HEMOLYSIS 5; MAGNESIUM 1.9 mg/dL (1.7-2.5); PHOSPHORUS 3.7 mg/dL (2.5-4.8); POTASSIUM 3.4 mEQ/L (3.4-4.9); SODIUM 134 mEQ/L (135-145); TOTAL PROTEIN 6.5 g/dL (6.6-8.7)
[2017-01-30] MEDS ORDERED: Fleet's Mineral Oil Enema RECTAL SCH (09:00)
[2017-01-30] MEDS: Docusate 100mg/10ml Liq GT SCH ×3 (09:07→18:00)
[2017-01-30] MEDS: Lactulose 20gm/30ml UDC GT SCH ×3 (09:07→18:00)
[2017-01-30] MEDS: levETIRAcetam 500mg/5ml Liquid GT SCH ×2 (09:08→20:51)
[2017-01-30] MEDS: Heparin 5000 units/ml inj SUBQ SCH ×2 (09:09→20:53)
[2017-01-30] MEDS: Cefepime HCl 1 GM in D5W 55 ML IV SCH ×2 (09:14→20:50)
[2017-01-30] MEDS: D5NS 1,000 ML IV SCH (13:13)
--- NOTE | 2017-01-30 18:15 | Pulmonology Progress Note ---
Assessment/Plan Problems: (1) Respiratory distress (2) Pneumonia (3) Glioblastoma (4) Feeding by G-tube Assessment/Plan had a large bm improving mental status stable. continue abx med/surg laxatives. Subjective ROS Limited/Unobtainable: Yes Constitutional: Reports: no symptoms HEENT: Repors: no symptoms Allergies: Coded Allergies: No Known Allergies (Unverified , 01/28/17) Objective Last 24 Hour Vital Signs Date Time Temp Pulse Resp B/P (MAP) Pulse Ox O2 Delivery O2 Flow Rate FiO2 01/30/17 16:00 97.0 87 18 118/73 94 Nasal Cannula 2.0 01/30/17 12:00 97.3 115 21 95/48 94 Nasal Cannula 2.0 01/30/17 09:14 97.7 111 20 100/66 98 Room Air 01/30/17 07:55 Nasal Cannula 3.0 32 01/30/17 07:50 99 20 Nasal Cannula 3.0 32 01/30/17 07:49 96 Nasal Cannula 3.0 32 01/30/17 04:00 97.5 99 20 143/99 99 Room Air 01/30/17 00:00 97.0 92 20 102/74 97 Nasal Cannula 01/29/17 20:00 97.9 92 20 117/77 98 Room Air 01/29/17 19:30 80 16 Nasal Cannula 3.0 32 01/29/17 19:30 98 Nasal Cannula 3.0 32 01/29/17 19:30 Nasal Cannula 3.0 32 Intake and Output 01/30/17 01/31/17 19:00 07:00 Intake Total 854 ml Balance 854 ml IV Total 355 ml Tube Feeding 499 ml # Bowel Movements 1 General Appearance: WD/WN HEENT: normocephalic, PERRL Respiratory/Chest: lungs clear Breasts: no masses Cardiovascular: normal rate Abdomen: normal bowel sounds, soft, non tender Genitourinary: normal external genitalia Skin: no ulcers Neurologic/Psychiatric: research subject II-XII grossly normal Microbiology Date/Time Source Procedure Growth Status 01/28/17 12:50 Blood Blood Culture - Preliminary NO GROWTH AFTER 24 HOURS Resulted 01/28/17 12:50 Blood Blood Culture - Preliminary NO GROWTH AFTER 24 HOURS Resulted 01/30/17 06:00 Sputum Gram Stain - Final Resulted 01/30/17 06:00 Sputum Sputum Culture Pending Resulted 01/28/17 13:00 Nasal Nares MRSA Culture - Final NO METHICILLIN RESISTANT STAPH AUREUS... Complete 01/28/17 13:20 Urine,Clean Catch Urine Culture - Final Pseudomonas Aeruginosa Complete 01/28/17 13:00 Rectum VRE Culture - Final NO VANCOMYCIN RESISTANT ENTEROCOCCUS ... Complete Laboratory Tests 01/29/17 20:45: Vancomycin Level Trough 20.6H 01/30/17 05:10: White Blood Count 14.3H, Red Blood Count 3.79L, Hemoglobin 13.2, Hematocrit 37.8 , Mean Corpuscular Volume 100H, Mean Corpuscular Hemoglobin 34.8H, Mean Corpuscular Hemoglobin Concent 34.9, Red Cell Distribution Width 13.9, Platelet Count 436, Mean Platelet Volume 5.2L, Neutrophils (%) (Auto) 81.2H, Lymphocytes (%) (Auto) 14.6L, Monocytes (%) (Auto) 3.7, Eosinophils (%) (Auto) 0.1, Basophils (%) (Auto) 0.5, Sodium Level 134L, Potassium Level 3.4, Chloride Level 95L, Carbon Dioxide Level 25, Anion Gap 14, Blood Urea Nitrogen 12, Creatinine 0.3L, Estimat Glomerular Filtration Rate > 60, Glucose Level 142H, Calcium Level 9.1, Phosphorus Level 3.7, Magnesium Level 1.9, Total Bilirubin 0.2, Aspartate Amino Transf (AST/SGOT) 17, Alanine Aminotransferase (ALT/SGPT) 22, Alkaline Phosphatase 86, Total Protein 6.5L, Albumin 3.4L, Globulin 3.1, Albumin/Globulin Ratio 1.0 Current Medications Medications (Trade) Dose Ordered Sig/Valeria Route PRN Reason Start Time Stop Time Status Last Admin Dose Admin Acetaminophen (Tylenol) 650 mg Q4H PRN GT Mild Pain/Temp > 100.5 01/29/17 17:15 02/27/17 21:14 Al Hydroxide/Mg Hydroxide (Mylanta II) 30 ml Q6H PRN GT dyspepsia 01/29/17 21:30 02/27/17 14:59 Albuterol/ Ipratropium (DuoNeb 0.5-3(2.5)mg/3ml) 3 ml Q4H PRN HHN Shortness of Breath 01/29/17 17:00 02/02/17 16:59 Bisacodyl (Dulcolax) 10 mg DAILYPRN PRN RECTAL Unrelieved Constipation 01/29/17 17:00 02/28/17 16:59 01/29/17 22:02 Cefepime HCl 1 gm/ Dextrose 55 ml @ 110 mls/hr EVERY 12 HOURS IV 01/29/17 21:00 02/04/17 20:59 01/30/17 09:14 Dexamethasone (Decadron) 2 mg BID GT 01/29/17 18:00 02/27/17 17:59 01/30/17 18:00 Docusate Sodium (Colace) 100 mg THREE TIMES A DAY GT 01/29/17 18:00 02/28/17 08:59 01/30/17 13:12 Heparin Sodium (Porcine) (Heparin 5000 units/ml) 5,000 units EVERY 12 HOURS SUBQ 01/29/17 21:00 02/27/17 20:59 01/30/17 09:09 Hydromorphone HCl (Dilaudid) 1 mg Q4H PRN IVP For Pain 4-10 01/29/17 17:15 02/04/17 21:14 01/30/17 06:49 Lactulose (Cephulac) 30 gm THREE TIMES A DAY GT 01/29/17 18:00 02/28/17 08:59 01/30/17 13:12 Levetiracetam (Keppra) 1,000 mg Q12HR GT 01/29/17 21:00 02/27/17 20:59 01/30/17 09:08 Mineral Oil (Fleet's Mineral Oil Enema) 133 ml EVERY OTHER DAY RECTAL 01/31/17 09:00 03/02/17 08:59 Nitroglycerin (Ntg) 0.4 mg Q5MIN X 3DOSES PRN SL Prn Chest Pain 01/29/17 17:00 02/27/17 14:59 Ondansetron HCl (Zofran) 4 mg Q6H PRN IVP Nausea & Vomiting 01/29/17 17:00 02/27/17 16:59 Polyethylene Glycol (Miralax) 17 gm BEDTIME GT 01/29/17 21:00 02/28/17 20:59 01/29/17 22:02 Polyethylene Glycol (Miralax) 17 gm DAILYPRN PRN GT Constipation 01/29/17 17:00 02/27/17 16:59 Promethazine HCl/ Codeine (Phenergan with Codeine) 5 ml Q4H PRN GT For Cough 01/29/17 17:45 02/27/17 14:59 Sennosides (Senokot) 8.6 mg DAILY ORAL 01/30/17 09:00 02/28/17 08:59 01/30/17 09:08 Temazepam (Restoril) 15 mg HSPRN PRN GT Insomnia 01/29/17 17:00 02/04/17 16:59 Vancomycin HCl (Vanco rx to dose) 1 ea DAILY PRN MISC Per rx protocol 01/30/17 09:00 02/27/17 14:59 Vancomycin HCl 1 gm/Dextrose 250 ml @ 167.007 mls/hr Q12HR@0600,1800 IVPB 01/30/17 06:00 02/04/17 05:59 01/30/17 18:00 ZAIN SOARES Jan 30, 2017 18:15
--- NOTE | 2017-01-30 18:40 | Infectious Diseases Prog Note ---
Assessment/Plan Assessment/Plan ASSESSMENT The patient is a 26-year-old female with Leukocytosis ( on steroids ) Possible sepsis. Possible pneumonia (chest x-ray: eft-sided pleural effusion. Possible underlying parenchymal consolidation graph mild Cardiolite ) Rule out bacteremia. Proable UTI : UCx: PSA History of brain tumor. History of seizure disorder. History of PEG tube placement. History of paraplegia PLAN: continue the patient on IV vancomycin and cefepime d# 3 / 7 Monitor CBC Monitor BMP. Monitor cultures (blood, sputum, ) Monitor chest x-ray. Subjective Allergies: Coded Allergies: No Known Allergies (Unverified , 01/28/17) Subjective afebrile Objective Vital Signs Last 24 Hour Vital Signs Date Time Temp Pulse Resp B/P (MAP) Pulse Ox O2 Delivery O2 Flow Rate FiO2 01/30/17 16:00 97.0 87 18 118/73 94 Nasal Cannula 2.0 01/30/17 12:00 97.3 115 21 95/48 94 Nasal Cannula 2.0 01/30/17 09:14 97.7 111 20 100/66 98 Room Air 01/30/17 07:55 Nasal Cannula 3.0 32 01/30/17 07:50 99 20 Nasal Cannula 3.0 32 01/30/17 07:49 96 Nasal Cannula 3.0 32 01/30/17 04:00 97.5 99 20 143/99 99 Room Air 01/30/17 00:00 97.0 92 20 102/74 97 Nasal Cannula 01/29/17 20:00 97.9 92 20 117/77 98 Room Air 01/29/17 19:30 80 16 Nasal Cannula 3.0 32 01/29/17 19:30 98 Nasal Cannula 3.0 32 01/29/17 19:30 Nasal Cannula 3.0 32 Height (Feet): 5 Height (Inches): 2.00 Weight (Pounds): 106 HEENT: atraumatic Respiratory/Chest: no accessory muscle use Cardiovascular: normal rate Abdomen: soft, non tender Microbiology Date/Time Source Procedure Growth Status 01/28/17 12:50 Blood Blood Culture - Preliminary NO GROWTH AFTER 24 HOURS Resulted 01/28/17 12:50 Blood Blood Culture - Preliminary NO GROWTH AFTER 24 HOURS Resulted 01/30/17 06:00 Sputum Gram Stain - Final Resulted 01/30/17 06:00 Sputum Sputum Culture Pending Resulted 01/28/17 13:00 Nasal Nares MRSA Culture - Final NO METHICILLIN RESISTANT STAPH AUREUS... Complete 01/28/17 13:20 Urine,Clean Catch Urine Culture - Final Pseudomonas Aeruginosa Complete 01/28/17 13:00 Rectum VRE Culture - Final NO VANCOMYCIN RESISTANT ENTEROCOCCUS ... Complete Laboratory Tests Test 01/29/17 20:45 01/30/17 05:10 Vancomycin Level Trough 20.6 ug/mL (5.0-12.0) H White Blood Count 14.3 K/UL (4.8-10.8) H Red Blood Count 3.79 M/UL (4.20-5.40) L Hemoglobin 13.2 G/DL (12.0-16.0) Hematocrit 37.8 % (37.0-47.0) Mean Corpuscular Volume 100 FL (80-99) H Mean Corpuscular Hemoglobin 34.8 PG (27.0-31.0) H Mean Corpuscular Hemoglobin Concent 34.9 G/DL (32.0-36.0) Red Cell Distribution Width 13.9 % (11.6-14.8) Platelet Count 436 K/UL (150-450) Mean Platelet Volume 5.2 FL (6.5-10.1) L Neutrophils (%) (Auto) 81.2 % (45.0-75.0) H Lymphocytes (%) (Auto) 14.6 % (20.0-45.0) L Monocytes (%) (Auto) 3.7 % (1.0-10.0) Eosinophils (%) (Auto) 0.1 % (0.0-3.0) Basophils (%) (Auto) 0.5 % (0.0-2.0) Sodium Level 134 mEQ/L (135-145) L Potassium Level 3.4 mEQ/L (3.4-4.9) Chloride Level 95 mEQ/L (98-107) L Carbon Dioxide Level 25 mEQ/L (20-30) Anion Gap 14 (5-15) Blood Urea Nitrogen 12 mg/dL (7-23) Creatinine 0.3 mg/dL (0.5-0.9) L Estimat Glomerular Filtration Rate > 60 mL/min (>60) Glucose Level 142 mg/dL (74-106) H Calcium Level 9.1 mg/dL (8.6-10.2) Phosphorus Level 3.7 mg/dL (2.5-4.8) Magnesium Level 1.9 mg/dL (1.7-2.5) Total Bilirubin 0.2 mg/dL (0.0-1.2) Aspartate Amino Transf (AST/SGOT) 17 U/L (5-40) Alanine Aminotransferase (ALT/SGPT) 22 U/L (3-33) Alkaline Phosphatase 86 U/L (35-104) Total Protein 6.5 g/dL (6.6-8.7) L Albumin 3.4 g/dL (3.5-5.2) L Globulin 3.1 g/dL Albumin/Globulin Ratio 1.0 (1.0-2.7) Current Medications Medications (Trade) Dose Ordered Sig/Valeria Route PRN Reason Start Time Stop Time Status Last Admin Dose Admin Acetaminophen (Tylenol) 650 mg Q4H PRN GT Mild Pain/Temp > 100.5 01/29/17 17:15 02/27/17 21:14 Al Hydroxide/Mg Hydroxide (Mylanta II) 30 ml Q6H PRN GT dyspepsia 01/29/17 21:30 02/27/17 14:59 Albuterol/ Ipratropium (DuoNeb 0.5-3(2.5)mg/3ml) 3 ml Q4H PRN HHN Shortness of Breath 01/29/17 17:00 02/02/17 16:59 Bisacodyl (Dulcolax) 10 mg DAILYPRN PRN RECTAL Unrelieved Constipation 01/29/17 17:00 02/28/17 16:59 01/29/17 22:02 Cefepime HCl 1 gm/ Dextrose 55 ml @ 110 mls/hr EVERY 12 HOURS IV 01/29/17 21:00 02/04/17 20:59 01/30/17 09:14 Dexamethasone (Decadron) 2 mg BID GT 01/29/17 18:00 02/27/17 17:59 01/30/17 18:00 Docusate Sodium (Colace) 100 mg THREE TIMES A DAY GT 01/29/17 18:00 02/28/17 08:59 01/30/17 13:12 Heparin Sodium (Porcine) (Heparin 5000 units/ml) 5,000 units EVERY 12 HOURS SUBQ 01/29/17 21:00 02/27/17 20:59 01/30/17 09:09 Hydromorphone HCl (Dilaudid) 1 mg Q4H PRN IVP For Pain 4-10 01/29/17 17:15 02/04/17 21:14 01/30/17 06:49 Lactulose (Cephulac) 30 gm THREE TIMES A DAY GT 01/29/17 18:00 02/28/17 08:59 01/30/17 13:12 Levetiracetam (Keppra) 1,000 mg Q12HR GT 01/29/17 21:00 02/27/17 20:59 01/30/17 09:08 Mineral Oil (Fleet's Mineral Oil Enema) 133 ml EVERY OTHER DAY RECTAL 01/31/17 09:00 03/02/17 08:59 Nitroglycerin (Ntg) 0.4 mg Q5MIN X 3DOSES PRN SL Prn Chest Pain 01/29/17 17:00 02/27/17 14:59 Ondansetron HCl (Zofran) 4 mg Q6H PRN IVP Nausea & Vomiting 01/29/17 17:00 02/27/17 16:59 Polyethylene Glycol (Miralax) 17 gm BEDTIME GT 01/29/17 21:00 02/28/17 20:59 01/29/17 22:02 Polyethylene Glycol (Miralax) 17 gm DAILYPRN PRN GT Constipation 01/29/17 17:00 02/27/17 16:59 Promethazine HCl/ Codeine (Phenergan with Codeine) 5 ml Q4H PRN GT For Cough 01/29/17 17:45 02/27/17 14:59 Sennosides (Senokot) 8.6 mg DAILY ORAL 01/30/17 09:00 02/28/17 08:59 01/30/17 09:08 Temazepam (Restoril) 15 mg HSPRN PRN GT Insomnia 01/29/17 17:00 02/04/17 16:59 Vancomycin HCl (Vanco rx to dose) 1 ea DAILY PRN MISC Per rx protocol 01/30/17 09:00 02/27/17 14:59 Vancomycin HCl 1 gm/Dextrose 250 ml @ 167.007 mls/hr Q12HR@0600,1800 IVPB 01/30/17 06:00 02/04/17 05:59 01/30/17 18:00 SINDI LEWIS M.D. Jan 30, 2017 18:40
[2017-01-30] MEDS: Miralax 17gm pkt GT SCH (20:51)
[2017-01-31 04:06] VITALS: BP 117/72
[2017-01-31 07:45] LABS: ALANINE AMINOTRANSFERASE 19 U/L (3-33); ALBUMIN/GLOBULIN RATIO 1.1 (1.0-2.7); ANION GAP 12 (5-15); ASPARTATE AMINO TRANSFERASE 17 U/L (5-40); CALCIUM 8.6 mg/dL (8.6-10.2); CARBON DIOXIDE 28 mEQ/L (20-30); CHLORIDE 93 mEQ/L (98-107); CREATININE 0.2 mg/dL (0.5-0.9); GLOMERULAR FILTRATION RATE > 60 mL/min (>60); HEMOLYSIS 6; POTASSIUM 3.3 mEQ/L (3.4-4.9); SODIUM 133 mEQ/L (135-145); TOTAL PROTEIN 6.1 g/dL (6.6-8.7)
[2017-01-31 07:58] LABS: BASOPHILS % (AUTO) 0.2 % (0.0-2.0); EOSINOPHILS % (AUTO) 0.1 % (0.0-3.0); LYMPHOCYTES % (AUTO) 18.5 % (20.0-45.0); MEAN CORPUSCULAR HEMOGLOBIN 34.2 PG (27.0-31.0); MEAN CORPUSCULAR HGB CONC 34.4 G/DL (32.0-36.0); MEAN CORPUSCULAR VOLUME 99 FL (80-99); MONOCYTES % (AUTO) 4.2 % (1.0-10.0); PLATELET COUNT 385 K/UL (150-450); RED BLOOD COUNT 3.51 M/UL (4.20-5.40); WHITE BLOOD COUNT 11.3 K/UL (4.8-10.8)
[2017-01-31 08:00] VITALS: BP 102/73
[2017-01-31] MEDS: Fleet's Mineral Oil Enema RECTAL SCH ×3 (08:40→09:39)
[2017-01-31] MEDS: Lactulose 20gm/30ml UDC GT SCH ×3 (08:40→17:39)
[2017-01-31] MEDS: Docusate 100mg/10ml Liq GT SCH ×3 (08:40→17:39)
[2017-01-31] MEDS: levETIRAcetam 500mg/5ml Liquid GT SCH ×2 (08:42→20:22)
[2017-01-31] MEDS: Heparin 5000 units/ml inj SUBQ SCH ×2 (08:42→20:29)
[2017-01-31] MEDS: Cefepime HCl 1 GM in D5W 55 ML IV SCH ×2 (08:43→20:21)
[2017-01-31] MEDS ORDERED: Fleet's Mineral Oil Enema RECTAL SCH (09:00)
[2017-01-31] MEDS ORDERED: KCl 10% 40mEq/30ml liquid GT ONE (11:00)
[2017-01-31 12:00] VITALS: BP 108/63
--- NOTE | 2017-01-31 14:02 | Diagnostic Imaging Report ---
Indication: Dyspnea Comparison: 01/28/17 A single view chest radiograph was obtained. Findings: Patchy infiltrate or atelectasis demonstrated at the left lung base and right upper lobe. Heart size is normal. Lung volumes are low bilaterally. Bones appear unremarkable. Impression: Bilateral infiltrates versus atelectasis. Gastrostomy No significant change otherwise
[2017-01-31] MEDS: HYDROmorphone 1mg/ml Carpuject IVP PRN ×2 (14:24→22:32)
[2017-01-31 16:00] VITALS: BP 117/79
--- NOTE | 2017-01-31 18:50 | Pulmonology Progress Note ---
Assessment/Plan Problems: (1) Respiratory distress (2) Pneumonia (3) Glioblastoma (4) Feeding by G-tube Assessment/Plan improving mental status stable. continue abx med/surg laxatives. Subjective ROS Limited/Unobtainable: Yes Allergies: Coded Allergies: No Known Allergies (Unverified , 01/28/17) Objective Last 24 Hour Vital Signs Date Time Temp Pulse Resp B/P (MAP) Pulse Ox O2 Delivery O2 Flow Rate FiO2 01/31/17 16:00 97.9 123 20 117/79 92 Nasal Cannula 4.0 01/31/17 12:00 97.7 119 21 108/63 93 Nasal Cannula 4.0 01/31/17 08:00 98.2 116 20 102/73 90 Nasal Cannula 4.0 01/31/17 07:54 114 20 Nasal Cannula 3.0 32 01/31/17 07:53 96 Nasal Cannula 3.0 32 01/31/17 07:52 Nasal Cannula 3.0 32 01/31/17 04:06 98.2 114 20 117/72 98 Nasal Cannula 4.0 01/30/17 23:52 98.2 124 20 135/102 99 Nasal Cannula 4.0 01/30/17 23:39 99.1 01/30/17 20:39 Nasal Cannula 3.0 32 01/30/17 20:39 94 Nasal Cannula 3.0 32 01/30/17 20:36 112 20 Nasal Cannula 3.0 32 01/30/17 20:00 99.1 115 18 106/65 93 Room Air Intake and Output 01/31/17 02/01/17 19:00 07:00 Intake Total 462 ml Balance 462 ml Intake Free Water 120 ml Tube Feeding 342 ml General Appearance: cachetic Respiratory/Chest: chest wall non-tender, lungs clear Breasts: no masses Cardiovascular: normal peripheral pulses Abdomen: normal bowel sounds, soft, non tender Extremities: no cyanosis, no clubbing 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 Microbiology Date/Time Source Procedure Growth Status 01/30/17 06:00 Sputum Gram Stain - Final Resulted 01/30/17 06:00 Sputum Sputum Culture Pending Resulted Laboratory Tests 01/31/17 05:50: White Blood Count 11.3H, Red Blood Count 3.51L, Hemoglobin 12.0, Hematocrit 34.9L, Mean Corpuscular Volume 99, Mean Corpuscular Hemoglobin 34.2H, Mean Corpuscular Hemoglobin Concent 34.4, Red Cell Distribution Width 14.0, Platelet Count 385, Mean Platelet Volume 5.0L, Neutrophils (%) (Auto) 77.0H, Lymphocytes (%) (Auto) 18.5L, Monocytes (%) (Auto) 4.2, Eosinophils (%) (Auto) 0.1, Basophils (%) (Auto) 0.2, Sodium Level 133L, Potassium Level 3.3L, Chloride Level 93L, Carbon Dioxide Level 28, Anion Gap 12, Blood Urea Nitrogen 11, Creatinine 0.2L, Estimat Glomerular Filtration Rate > 60, Glucose Level 142H, Calcium Level 8.6, Total Bilirubin < 0.2, Aspartate Amino Transf (AST/SGOT) 17, Alanine Aminotransferase (ALT/SGPT) 19, Alkaline Phosphatase 78, Pro-B-Type Natriuretic Peptide 255H, Total Protein 6.1L, Albumin 3.2L, Globulin 2.9, Albumin/Globulin Ratio 1.1 Current Medications Medications (Trade) Dose Ordered Sig/Valeria Route PRN Reason Start Time Stop Time Status Last Admin Dose Admin Acetaminophen (Tylenol) 650 mg Q4H PRN GT Mild Pain/Temp > 100.5 01/29/17 17:15 02/27/17 21:14 Al Hydroxide/Mg Hydroxide (Mylanta II) 30 ml Q6H PRN GT dyspepsia 01/29/17 21:30 02/27/17 14:59 Albuterol/ Ipratropium (DuoNeb 0.5-3(2.5)mg/3ml) 3 ml Q4H PRN HHN Shortness of Breath 01/29/17 17:00 02/02/17 16:59 Bisacodyl (Dulcolax) 10 mg DAILYPRN PRN RECTAL Unrelieved Constipation 01/29/17 17:00 02/28/17 16:59 01/29/17 22:02 Cefepime HCl 1 gm/ Dextrose 55 ml @ 110 mls/hr EVERY 12 HOURS IV 01/29/17 21:00 02/04/17 20:59 01/31/17 08:43 Dexamethasone (Decadron) 2 mg BID GT 01/29/17 18:00 02/27/17 17:59 01/31/17 17:39 Docusate Sodium (Colace) 100 mg THREE TIMES A DAY GT 01/29/17 18:00 02/28/17 08:59 01/31/17 08:40 Heparin Sodium (Porcine) (Heparin 5000 units/ml) 5,000 units EVERY 12 HOURS SUBQ 01/29/17 21:00 02/27/17 20:59 01/31/17 08:42 Hydromorphone HCl (Dilaudid) 1 mg Q4H PRN IVP For Pain 4-10 01/29/17 17:15 02/04/17 21:14 01/31/17 14:24 Lactulose (Cephulac) 30 gm THREE TIMES A DAY GT 01/29/17 18:00 02/28/17 08:59 01/31/17 13:07 Levetiracetam (Keppra) 1,000 mg Q12HR GT 01/29/17 21:00 02/27/17 20:59 01/31/17 08:42 Mineral Oil (Fleet's Mineral Oil Enema) 133 ml EVERY OTHER DAY RECTAL 01/31/17 09:00 03/02/17 08:59 Nitroglycerin (Ntg) 0.4 mg Q5MIN X 3DOSES PRN SL Prn Chest Pain 01/29/17 17:00 02/27/17 14:59 Ondansetron HCl (Zofran) 4 mg Q6H PRN IVP Nausea & Vomiting 01/29/17 17:00 02/27/17 16:59 Polyethylene Glycol (Miralax) 17 gm BEDTIME GT 01/29/17 21:00 02/28/17 20:59 01/29/17 22:02 Polyethylene Glycol (Miralax) 17 gm DAILYPRN PRN GT Constipation 01/29/17 17:00 02/27/17 16:59 Promethazine HCl/ Codeine (Phenergan with Codeine) 5 ml Q4H PRN GT For Cough 01/29/17 17:45 02/27/17 14:59 Sennosides (Senokot) 8.6 mg DAILY ORAL 01/30/17 09:00 02/28/17 08:59 01/31/17 08:40 Temazepam (Restoril) 15 mg HSPRN PRN GT Insomnia 01/29/17 17:00 02/04/17 16:59 Vancomycin HCl (Vanco rx to dose) 1 ea DAILY PRN MISC Per rx protocol 01/30/17 09:00 02/27/17 14:59 Vancomycin HCl 1 gm/Dextrose 250 ml @ 167.007 mls/hr Q12HR@0600,1800 IVPB 01/30/17 06:00 02/04/17 05:59 01/31/17 17:39 ZAIN SOARES Jan 31, 2017 18:50
[2017-01-31 20:00] VITALS: BP 117/86
[2017-01-31] MEDS: Miralax 17gm pkt GT SCH (20:21)
[2017-02-01] VITALS: BP 115/77
[2017-02-01 04:00] VITALS: BP 115/85
[2017-02-01] MEDS: HYDROmorphone 1mg/ml Carpuject IVP PRN (04:46)
[2017-02-01 08:00] VITALS: BP 112/84
[2017-02-01] MEDS: Docusate 100mg/10ml Liq GT SCH ×3 (10:24→18:00)
[2017-02-01] MEDS: Cefepime HCl 1 GM in D5W 55 ML IV SCH ×2 (10:24→20:53)
[2017-02-01] MEDS: levETIRAcetam 500mg/5ml Liquid GT SCH ×2 (10:25→20:53)
[2017-02-01] MEDS: Lactulose 20gm/30ml UDC GT SCH ×3 (10:25→18:00)
[2017-02-01] MEDS: Heparin 5000 units/ml inj SUBQ SCH ×2 (10:30→21:01)
--- NOTE | 2017-02-01 11:18 | Infectious Diseases Prog Note ---
Assessment/Plan Assessment/Plan ASSESSMENT The patient is a 26-year-old female with Leukocytosis ( on steroids ) Possible sepsis. Possible pneumonia Scx: GNR x 2 (chest x-ray: Bilateral infiltrates versus atelectasis. ) Rule out bacteremia. Proable UTI : UCx: PSA History of brain tumor. History of seizure disorder. History of PEG tube placement. History of paraplegia PLAN: continue the patient on IV vancomycin and cefepime d# 5 / 7 Monitor CBC Monitor BMP. Monitor cultures (blood, sputum, ) Monitor chest x-ray. Subjective Constitutional: Denies: no symptoms, fever, chills, fatigue, anorexia, drenching sweats, other Allergies: Coded Allergies: No Known Allergies (Unverified , 01/28/17) Subjective afebrile Objective Vital Signs Last 24 Hour Vital Signs Date Time Temp Pulse Resp B/P (MAP) Pulse Ox O2 Delivery O2 Flow Rate FiO2 02/01/17 08:00 96.3 95 16 112/84 97 Nasal Cannula 3.0 02/01/17 07:07 Nasal Cannula 3.0 02/01/17 07:06 96 Nasal Cannula 3.0 02/01/17 07:06 95 18 Nasal Cannula 3.0 02/01/17 05:16 97.3 02/01/17 04:00 97.2 100 18 115/85 98 Nasal Cannula 4.0 02/01/17 00:00 97.3 96 18 115/77 97 Nasal Cannula 4.0 01/31/17 20:21 105 20 Nasal Cannula 3.0 32 01/31/17 20:21 97 Nasal Cannula 3.0 32 01/31/17 20:21 Nasal Cannula 3.0 32 01/31/17 20:00 97.5 105 20 117/86 95 Nasal Cannula 4.0 01/31/17 16:00 97.9 123 20 117/79 92 Nasal Cannula 4.0 01/31/17 12:00 97.7 119 21 108/63 93 Nasal Cannula 4.0 Height (Feet): 5 Height (Inches): 2.00 Weight (Pounds): 106 HEENT: atraumatic Respiratory/Chest: normal breath sounds Cardiovascular: regular rhythm Abdomen: no organomegaly Microbiology Date/Time Source Procedure Growth Status 01/30/17 06:00 Sputum Gram Stain - Final Resulted 01/30/17 06:00 Sputum Culture - Preliminary Gram Negative Bacillus 1 Gram Negative Bacillus 2 Resulted Current Medications Medications (Trade) Dose Ordered Sig/Valeria Route PRN Reason Start Time Stop Time Status Last Admin Dose Admin Acetaminophen (Tylenol) 650 mg Q4H PRN GT Mild Pain/Temp > 100.5 01/29/17 17:15 02/27/17 21:14 Al Hydroxide/Mg Hydroxide (Mylanta II) 30 ml Q6H PRN GT dyspepsia 01/29/17 21:30 02/27/17 14:59 Albuterol/ Ipratropium (DuoNeb 0.5-3(2.5)mg/3ml) 3 ml Q4H PRN HHN Shortness of Breath 01/29/17 17:00 02/02/17 16:59 Bisacodyl (Dulcolax) 10 mg DAILYPRN PRN RECTAL Unrelieved Constipation 01/29/17 17:00 02/28/17 16:59 01/29/17 22:02 Cefepime HCl 1 gm/ Dextrose 55 ml @ 110 mls/hr EVERY 12 HOURS IV 01/29/17 21:00 02/04/17 20:59 02/01/17 10:24 Dexamethasone (Decadron) 2 mg BID GT 01/29/17 18:00 02/27/17 17:59 02/01/17 10:25 Docusate Sodium (Colace) 100 mg THREE TIMES A DAY GT 01/29/17 18:00 02/28/17 08:59 02/01/17 10:24 Heparin Sodium (Porcine) (Heparin 5000 units/ml) 5,000 units EVERY 12 HOURS SUBQ 01/29/17 21:00 02/27/17 20:59 02/01/17 10:30 Hydromorphone HCl (Dilaudid) 1 mg Q4H PRN IVP For Pain 4-10 01/29/17 17:15 02/04/17 21:14 02/01/17 04:46 Lactulose (Cephulac) 30 gm THREE TIMES A DAY GT 01/29/17 18:00 02/28/17 08:59 02/01/17 10:25 Levetiracetam (Keppra) 1,000 mg Q12HR GT 01/29/17 21:00 02/27/17 20:59 02/01/17 10:25 Mineral Oil (Fleet's Mineral Oil Enema) 133 ml EVERY OTHER DAY RECTAL 01/31/17 09:00 03/02/17 08:59 Nitroglycerin (Ntg) 0.4 mg Q5MIN X 3DOSES PRN SL Prn Chest Pain 01/29/17 17:00 02/27/17 14:59 Ondansetron HCl (Zofran) 4 mg Q6H PRN IVP Nausea & Vomiting 01/29/17 17:00 02/27/17 16:59 Polyethylene Glycol (Miralax) 17 gm BEDTIME GT 01/29/17 21:00 02/28/17 20:59 01/31/17 20:21 Polyethylene Glycol (Miralax) 17 gm DAILYPRN PRN GT Constipation 01/29/17 17:00 02/27/17 16:59 Promethazine HCl/ Codeine (Phenergan with Codeine) 5 ml Q4H PRN GT For Cough 01/29/17 17:45 02/27/17 14:59 Sennosides (Senokot) 8.6 mg DAILY ORAL 01/30/17 09:00 02/28/17 08:59 02/01/17 10:25 Temazepam (Restoril) 15 mg HSPRN PRN GT Insomnia 01/29/17 17:00 02/04/17 16:59 Vancomycin HCl (Vanco rx to dose) 1 ea DAILY PRN MISC Per rx protocol 01/30/17 09:00 02/27/17 14:59 Vancomycin HCl 1 gm/Dextrose 250 ml @ 167.007 mls/hr Q12HR@0600,1800 IVPB 01/30/17 06:00 02/04/17 05:59 02/01/17 04:46 SINDI LEWIS M.D. Feb 01, 2017 11:18
[2017-02-01 12:57] VITALS: BP 106/67
[2017-02-01 16:00] VITALS: BP 112/75
--- NOTE | 2017-02-01 18:05 | Pulmonology Progress Note ---
Assessment/Plan Problems: (1) Respiratory distress (2) Pneumonia (3) Glioblastoma (4) Feeding by G-tube Assessment/Plan check labs in am dc planning improving mental status stable. continue abx med/surg laxatives. Subjective ROS Limited/Unobtainable: No Constitutional: Reports: no symptoms HEENT: Repors: no symptoms Respiratory: Reports: no symptoms Allergies: Coded Allergies: No Known Allergies (Unverified , 01/28/17) Objective Last 24 Hour Vital Signs Date Time Temp Pulse Resp B/P (MAP) Pulse Ox O2 Delivery O2 Flow Rate FiO2 02/01/17 16:00 99.0 80 19 112/75 95 Nasal Cannula 02/01/17 12:57 98.1 111 18 106/67 95 4.0 02/01/17 08:00 96.3 95 16 112/84 97 Nasal Cannula 3.0 02/01/17 07:07 Nasal Cannula 3.0 02/01/17 07:06 96 Nasal Cannula 3.0 02/01/17 07:06 95 18 Nasal Cannula 3.0 02/01/17 05:16 97.3 02/01/17 04:00 97.2 100 18 115/85 98 Nasal Cannula 4.0 02/01/17 00:00 97.3 96 18 115/77 97 Nasal Cannula 4.0 01/31/17 20:21 105 20 Nasal Cannula 3.0 32 01/31/17 20:21 97 Nasal Cannula 3.0 32 01/31/17 20:21 Nasal Cannula 3.0 32 01/31/17 20:00 97.5 105 20 117/86 95 Nasal Cannula 4.0 Intake and Output 02/01/17 02/02/17 19:00 07:00 Intake Total 399 ml Balance 399 ml Tube Feeding 399 ml General Appearance: WD/WN HEENT: normocephalic Respiratory/Chest: chest wall non-tender, lungs clear Breasts: no masses Cardiovascular: normal peripheral pulses Abdomen: normal bowel sounds, soft, non tender Extremities: no cyanosis, no clubbing Neurologic/Psychiatric: supervisor screen printing II-XII grossly normal, no motor/sensory deficits Microbiology Date/Time Source Procedure Growth Status 01/30/17 06:00 Sputum Gram Stain - Final Resulted 01/30/17 06:00 Sputum Culture - Preliminary Gram Negative Bacillus 1 Gram Negative Bacillus 2 Resulted Current Medications Medications (Trade) Dose Ordered Sig/Valeria Route PRN Reason Start Time Stop Time Status Last Admin Dose Admin Acetaminophen (Tylenol) 650 mg Q4H PRN GT Mild Pain/Temp > 100.5 01/29/17 17:15 02/27/17 21:14 Al Hydroxide/Mg Hydroxide (Mylanta II) 30 ml Q6H PRN GT dyspepsia 01/29/17 21:30 02/27/17 14:59 Albuterol/ Ipratropium (DuoNeb 0.5-3(2.5)mg/3ml) 3 ml Q4H PRN HHN Shortness of Breath 01/29/17 17:00 02/02/17 16:59 Bisacodyl (Dulcolax) 10 mg DAILYPRN PRN RECTAL Unrelieved Constipation 01/29/17 17:00 02/28/17 16:59 01/29/17 22:02 Cefepime HCl 1 gm/ Dextrose 55 ml @ 110 mls/hr EVERY 12 HOURS IV 01/29/17 21:00 02/04/17 20:59 02/01/17 10:24 Dexamethasone (Decadron) 2 mg BID GT 01/29/17 18:00 02/27/17 17:59 02/01/17 10:25 Docusate Sodium (Colace) 100 mg THREE TIMES A DAY GT 01/29/17 18:00 02/28/17 08:59 02/01/17 14:50 Heparin Sodium (Porcine) (Heparin 5000 units/ml) 5,000 units EVERY 12 HOURS SUBQ 01/29/17 21:00 02/27/17 20:59 02/01/17 10:30 Hydromorphone HCl (Dilaudid) 1 mg Q4H PRN IVP For Pain 4-10 01/29/17 17:15 02/04/17 21:14 02/01/17 04:46 Lactulose (Cephulac) 30 gm THREE TIMES A DAY GT 01/29/17 18:00 02/28/17 08:59 02/01/17 14:50 Levetiracetam (Keppra) 1,000 mg Q12HR GT 01/29/17 21:00 02/27/17 20:59 02/01/17 10:25 Mineral Oil (Fleet's Mineral Oil Enema) 133 ml EVERY OTHER DAY RECTAL 01/31/17 09:00 03/02/17 08:59 Nitroglycerin (Ntg) 0.4 mg Q5MIN X 3DOSES PRN SL Prn Chest Pain 01/29/17 17:00 02/27/17 14:59 Ondansetron HCl (Zofran) 4 mg Q6H PRN IVP Nausea & Vomiting 01/29/17 17:00 02/27/17 16:59 Polyethylene Glycol (Miralax) 17 gm BEDTIME GT 01/29/17 21:00 02/28/17 20:59 01/31/17 20:21 Polyethylene Glycol (Miralax) 17 gm DAILYPRN PRN GT Constipation 01/29/17 17:00 02/27/17 16:59 Promethazine HCl/ Codeine (Phenergan with Codeine) 5 ml Q4H PRN GT For Cough 01/29/17 17:45 02/27/17 14:59 Sennosides (Senokot) 8.6 mg DAILY ORAL 01/30/17 09:00 02/28/17 08:59 02/01/17 10:25 Temazepam (Restoril) 15 mg HSPRN PRN GT Insomnia 01/29/17 17:00 02/04/17 16:59 Vancomycin HCl (Vanco rx to dose) 1 ea DAILY PRN MISC Per rx protocol 01/30/17 09:00 02/27/17 14:59 Vancomycin HCl 1 gm/Dextrose 250 ml @ 167.007 mls/hr Q12HR@0600,1800 IVPB 01/30/17 06:00 02/04/17 05:59 02/01/17 04:46 ZAIN SOARES Feb 01, 2017 18:05
[2017-02-01 20:00] VITALS: BP 145/70
[2017-02-01] MEDS: Miralax 17gm pkt GT SCH (20:53)
[2017-02-02] VITALS: BP_SYST 131
[2017-02-02] MEDS: HYDROmorphone 1mg/ml Carpuject IVP PRN (02:10)
[2017-02-02 04:00] VITALS: BP 130/102
[2017-02-02 06:46] LABS: BASOPHILS % (AUTO) 0.2 % (0.0-2.0); EOSINOPHILS % (AUTO) 0.1 % (0.0-3.0); LYMPHOCYTES % (AUTO) 13.5 % (20.0-45.0); MEAN CORPUSCULAR HEMOGLOBIN 33.9 PG (27.0-31.0); MEAN CORPUSCULAR HGB CONC 34.2 G/DL (32.0-36.0); MEAN CORPUSCULAR VOLUME 99 FL (80-99); MEAN PLATELET VOLUME 5.6 FL (6.5-10.1); MONOCYTES % (AUTO) 2.5 % (1.0-10.0); NEUTROPHILS % (AUTO) 83.7 % (45.0-75.0); PLATELET COUNT 423 K/UL (150-450); RED BLOOD COUNT 3.87 M/UL (4.20-5.40); RED CELL DISTRIBUTION WIDTH 13.8 % (11.6-14.8); WHITE BLOOD COUNT 13.9 K/UL (4.8-10.8)
[2017-02-02 07:28] LABS: ALANINE AMINOTRANSFERASE 21 U/L (3-33); ALBUMIN/GLOBULIN RATIO 0.8 (1.0-2.7); ANION GAP 12 (5-15); ASPARTATE AMINO TRANSFERASE 15 U/L (5-40); CALCIUM 9.6 mg/dL (8.6-10.2); CARBON DIOXIDE 30 mEQ/L (20-30); CHLORIDE 93 mEQ/L (98-107); CREATININE 0.2 mg/dL (0.5-0.9); GLOMERULAR FILTRATION RATE > 60 mL/min (>60); HEMOLYSIS 3; PHOSPHORUS 3.8 mg/dL (2.5-4.8); POTASSIUM 4.4 mEQ/L (3.4-4.9); SODIUM 135 mEQ/L (135-145); TOTAL PROTEIN 7.5 g/dL (6.6-8.7)
[2017-02-02 08:42] VITALS: BP 120/88
[2017-02-02] MEDS: Fleet's Mineral Oil Enema RECTAL SCH (09:00)
[2017-02-02] MEDS: Docusate 100mg/10ml Liq GT SCH ×3 (10:11→17:16)
[2017-02-02] MEDS: levETIRAcetam 500mg/5ml Liquid GT SCH ×2 (10:11→21:43)
[2017-02-02] MEDS: Lactulose 20gm/30ml UDC GT SCH ×3 (10:12→17:15)
[2017-02-02] MEDS: Heparin 5000 units/ml inj SUBQ SCH ×2 (10:15→21:50)
[2017-02-02] MEDS: Cefepime HCl 1 GM in D5W 55 ML IV SCH ×2 (10:17→21:44)
[2017-02-02] MEDS ORDERED: D5NS 1000ml IV ONE (10:45)
[2017-02-02] MEDS ORDERED: NS 275ml ONE (10:45)
[2017-02-02 11:03] LABS: ERYTHROCYTE SEDIMENTATION RATE 60 MM/HR (0-20)
[2017-02-02 12:00] VITALS: BP 113/80
[2017-02-02 16:00] VITALS: BP 121/86
--- NOTE | 2017-02-02 19:09 | Pulmonology Progress Note ---
Assessment/Plan Problems: (1) Respiratory distress (2) Pneumonia (3) Glioblastoma (4) Feeding by G-tube Assessment/Plan check labs in am dc planning improving mental status stable. continue abx med/surg laxatives. Subjective Constitutional: Reports: no symptoms HEENT: Repors: no symptoms Respiratory: Reports: no symptoms Allergies: Coded Allergies: No Known Allergies (Unverified , 01/28/17) Objective Last 24 Hour Vital Signs Date Time Temp Pulse Resp B/P (MAP) Pulse Ox O2 Delivery O2 Flow Rate FiO2 02/02/17 16:00 97.2 111 20 121/86 96 Room Air 02/02/17 14:45 97.0 02/02/17 12:00 97.0 108 20 113/80 95 Room Air 02/02/17 08:42 96.6 101 19 120/88 94 Room Air 02/02/17 08:37 Nasal Cannula 4.0 36 02/02/17 08:36 95 Nasal Cannula 4.0 02/02/17 08:36 98 18 Nasal Cannula 4.0 02/02/17 04:00 98.2 86 18 130/102 96 Nasal Cannula 2.0 02/02/17 02:40 98.1 02/02/17 00:00 98.1 92 18 131/ 95 Nasal Cannula 2.0 02/01/17 20:00 98.1 75 20 145/70 91 Room Air 02/01/17 19:42 Nasal Cannula 3.0 02/01/17 19:42 96 Nasal Cannula 3.0 02/01/17 19:42 91 18 Nasal Cannula 3.0 Intake and Output 02/02/17 02/03/17 19:00 07:00 Intake Total 566 ml Balance 566 ml IV Total 110 ml Tube Feeding 456 ml General Appearance: cachetic HEENT: normocephalic, atraumatic Respiratory/Chest: chest wall non-tender, lungs clear Breasts: no masses Cardiovascular: normal peripheral pulses Abdomen: normal bowel sounds, soft, non tender Genitourinary: normal external genitalia Skin: no ulcers Neurologic/Psychiatric: crown presser II-XII grossly normal Laboratory Tests 02/02/17 05:45: White Blood Count 13.9H, Red Blood Count 3.87L, Hemoglobin 13.1, Hematocrit 38.3 , Mean Corpuscular Volume 99, Mean Corpuscular Hemoglobin 33.9H, Mean Corpuscular Hemoglobin Concent 34.2, Red Cell Distribution Width 13.8, Platelet Count 423, Mean Platelet Volume 5.6L, Neutrophils (%) (Auto) 83.7H, Lymphocytes (%) (Auto) 13.5L, Monocytes (%) (Auto) 2.5, Eosinophils (%) (Auto) 0.1, Basophils (%) (Auto) 0.2, Erythrocyte Sedimentation Rate 60H, Sodium Level 135, Potassium Level 4.4, Chloride Level 93L, Carbon Dioxide Level 30, Anion Gap 12, Blood Urea Nitrogen 9, Creatinine 0.2L, Estimat Glomerular Filtration Rate > 60 , Glucose Level 173H, Calcium Level 9.6, Phosphorus Level 3.8, Magnesium Level 2.0, Total Bilirubin 0.3, Aspartate Amino Transf (AST/SGOT) 15, Alanine Aminotransferase (ALT/SGPT) 21, Alkaline Phosphatase 109H, C-Reactive Protein, Quantitative 18.0H, Total Protein 7.5, Albumin 3.5, Globulin 4.0, Albumin/ Globulin Ratio 0.8L Current Medications Medications (Trade) Dose Ordered Sig/Valeria Route PRN Reason Start Time Stop Time Status Last Admin Dose Admin Acetaminophen (Tylenol) 650 mg Q4H PRN GT Mild Pain/Temp > 100.5 01/29/17 17:15 02/27/17 21:14 02/01/17 18:33 Al Hydroxide/Mg Hydroxide (Mylanta II) 30 ml Q6H PRN GT dyspepsia 01/29/17 21:30 02/27/17 14:59 Bisacodyl (Dulcolax) 10 mg DAILYPRN PRN RECTAL Unrelieved Constipation 01/29/17 17:00 02/28/17 16:59 01/29/17 22:02 Cefepime HCl 1 gm/ Dextrose 55 ml @ 110 mls/hr EVERY 12 HOURS IV 01/29/17 21:00 02/04/17 20:59 02/02/17 10:17 Dexamethasone (Decadron) 2 mg BID GT 01/29/17 18:00 02/27/17 17:59 02/02/17 17:16 Docusate Sodium (Colace) 100 mg THREE TIMES A DAY GT 01/29/17 18:00 02/28/17 08:59 02/02/17 17:16 Heparin Sodium (Porcine) (Heparin 5000 units/ml) 5,000 units EVERY 12 HOURS SUBQ 01/29/17 21:00 02/27/17 20:59 02/02/17 10:15 Hydromorphone HCl (Dilaudid) 1 mg Q4H PRN IVP For Pain 4-10 02/02/17 10:30 02/09/17 10:29 02/02/17 14:15 Lactulose (Cephulac) 30 gm THREE TIMES A DAY GT 01/29/17 18:00 02/28/17 08:59 02/02/17 17:15 Levetiracetam (Keppra) 1,000 mg Q12HR GT 01/29/17 21:00 02/27/17 20:59 02/02/17 10:11 Mineral Oil (Fleet's Mineral Oil Enema) 133 ml EVERY OTHER DAY RECTAL 01/31/17 09:00 03/02/17 08:59 02/02/17 09:00 Nitroglycerin (Ntg) 0.4 mg Q5MIN X 3DOSES PRN SL Prn Chest Pain 01/29/17 17:00 02/27/17 14:59 Ondansetron HCl (Zofran) 4 mg Q6H PRN IVP Nausea & Vomiting 01/29/17 17:00 02/27/17 16:59 Polyethylene Glycol (Miralax) 17 gm BEDTIME GT 01/29/17 21:00 02/28/17 20:59 02/01/17 20:53 Polyethylene Glycol (Miralax) 17 gm DAILYPRN PRN GT Constipation 01/29/17 17:00 02/27/17 16:59 Promethazine HCl/ Codeine (Phenergan with Codeine) 5 ml Q4H PRN GT For Cough 01/29/17 17:45 02/27/17 14:59 Sennosides (Senokot) 8.6 mg DAILY ORAL 01/30/17 09:00 02/28/17 08:59 02/02/17 10:12 Temazepam (Restoril) 15 mg HSPRN PRN GT Insomnia 01/29/17 17:00 02/04/17 16:59 Vancomycin HCl (Vanco rx to dose) 1 ea DAILY PRN MISC Per rx protocol 01/30/17 09:00 02/27/17 14:59 Vancomycin HCl 1 gm/Dextrose 250 ml @ 167.007 mls/hr Q12HR@0600,1800 IVPB 01/30/17 06:00 02/04/17 05:59 02/02/17 17:17 ZAIN SOARES Feb 02, 2017 19:09
[2017-02-02 20:00] VITALS: BP 115/83
--- NOTE | 2017-02-02 20:32 | Infectious Diseases Prog Note ---
Assessment/Plan Assessment/Plan ASSESSMENT: 26-year-old female with: Probable qS-PSA UTI Possible pneumonia - SCx S.marcescens, S.maltophilia CXR: Bilateral infiltrates versus atelectasis. Leukocytosis - persistent, stable, afebrile ( on steroids ) History of brain tumor. History of seizure disorder. History of PEG tube placement. History of paraplegia NKDA DNR PLAN: DC IV vancomycin d# 6, continue cefepime d# 6 / 7, add bactrim d# 1 / 5 steno coverage ( avoid quinolones with seizure d/o ) Monitor CBC Monitor BMP. Monitor chest x-ray Subjective Allergies: Coded Allergies: No Known Allergies (Unverified , 01/28/17) Subjective remains afebrile Objective Vital Signs Last 24 Hour Vital Signs Date Time Temp Pulse Resp B/P (MAP) Pulse Ox O2 Delivery O2 Flow Rate FiO2 02/02/17 19:48 Nasal Cannula 4.0 36 02/02/17 19:47 95 Nasal Cannula 4.0 02/02/17 19:46 115 18 Nasal Cannula 4.0 02/02/17 16:00 97.2 111 20 121/86 96 Room Air 02/02/17 14:45 97.0 02/02/17 12:00 97.0 108 20 113/80 95 Room Air 02/02/17 08:42 96.6 101 19 120/88 94 Room Air 02/02/17 08:37 Nasal Cannula 4.0 36 02/02/17 08:36 95 Nasal Cannula 4.0 02/02/17 08:36 98 18 Nasal Cannula 4.0 02/02/17 04:00 98.2 86 18 130/102 96 Nasal Cannula 2.0 02/02/17 02:40 98.1 02/02/17 00:00 98.1 92 18 131/ 95 Nasal Cannula 2.0 Height (Feet): 5 Height (Inches): 2.00 Weight (Pounds): 106 General Appearance: no acute distress Respiratory/Chest: no respiratory distress Cardiovascular: normal rate, regular rhythm Abdomen: normal bowel sounds, soft, non tender, non distended Laboratory Tests Test 02/02/17 05:45 White Blood Count 13.9 K/UL (4.8-10.8) H Red Blood Count 3.87 M/UL (4.20-5.40) L Hemoglobin 13.1 G/DL (12.0-16.0) Hematocrit 38.3 % (37.0-47.0) Mean Corpuscular Volume 99 FL (80-99) Mean Corpuscular Hemoglobin 33.9 PG (27.0-31.0) H Mean Corpuscular Hemoglobin Concent 34.2 G/DL (32.0-36.0) Red Cell Distribution Width 13.8 % (11.6-14.8) Platelet Count 423 K/UL (150-450) Mean Platelet Volume 5.6 FL (6.5-10.1) L Neutrophils (%) (Auto) 83.7 % (45.0-75.0) H Lymphocytes (%) (Auto) 13.5 % (20.0-45.0) L Monocytes (%) (Auto) 2.5 % (1.0-10.0) Eosinophils (%) (Auto) 0.1 % (0.0-3.0) Basophils (%) (Auto) 0.2 % (0.0-2.0) Erythrocyte Sedimentation Rate 60 MM/HR (0-20) H Sodium Level 135 mEQ/L (135-145) Potassium Level 4.4 mEQ/L (3.4-4.9) Chloride Level 93 mEQ/L (98-107) L Carbon Dioxide Level 30 mEQ/L (20-30) Anion Gap 12 (5-15) Blood Urea Nitrogen 9 mg/dL (7-23) Creatinine 0.2 mg/dL (0.5-0.9) L Estimat Glomerular Filtration Rate > 60 mL/min (>60) Glucose Level 173 mg/dL (74-106) H Calcium Level 9.6 mg/dL (8.6-10.2) Phosphorus Level 3.8 mg/dL (2.5-4.8) Magnesium Level 2.0 mg/dL (1.7-2.5) Total Bilirubin 0.3 mg/dL (0.0-1.2) Aspartate Amino Transf (AST/SGOT) 15 U/L (5-40) Alanine Aminotransferase (ALT/SGPT) 21 U/L (3-33) Alkaline Phosphatase 109 U/L (35-104) H C-Reactive Protein, Quantitative 18.0 mg/dL (< 0.5) H Total Protein 7.5 g/dL (6.6-8.7) Albumin 3.5 g/dL (3.5-5.2) Globulin 4.0 g/dL Albumin/Globulin Ratio 0.8 (1.0-2.7) L Current Medications Medications (Trade) Dose Ordered Sig/Valeria Route PRN Reason Start Time Stop Time Status Last Admin Dose Admin Acetaminophen (Tylenol) 650 mg Q4H PRN GT Mild Pain/Temp > 100.5 01/29/17 17:15 02/27/17 21:14 02/01/17 18:33 Al Hydroxide/Mg Hydroxide (Mylanta II) 30 ml Q6H PRN GT dyspepsia 01/29/17 21:30 02/27/17 14:59 Bisacodyl (Dulcolax) 10 mg DAILYPRN PRN RECTAL Unrelieved Constipation 01/29/17 17:00 02/28/17 16:59 01/29/17 22:02 Cefepime HCl 1 gm/ Dextrose 55 ml @ 110 mls/hr EVERY 12 HOURS IV 01/29/17 21:00 02/04/17 20:59 02/02/17 10:17 Dexamethasone (Decadron) 2 mg BID GT 01/29/17 18:00 02/27/17 17:59 02/02/17 17:16 Docusate Sodium (Colace) 100 mg THREE TIMES A DAY GT 01/29/17 18:00 02/28/17 08:59 02/02/17 17:16 Heparin Sodium (Porcine) (Heparin 5000 units/ml) 5,000 units EVERY 12 HOURS SUBQ 01/29/17 21:00 02/27/17 20:59 02/02/17 10:15 Hydromorphone HCl (Dilaudid) 1 mg Q4H PRN IVP For Pain 4-10 02/02/17 10:30 02/09/17 10:29 02/02/17 14:15 Lactulose (Cephulac) 30 gm THREE TIMES A DAY GT 01/29/17 18:00 02/28/17 08:59 02/02/17 17:15 Levetiracetam (Keppra) 1,000 mg Q12HR GT 01/29/17 21:00 02/27/17 20:59 9/16/17 10:11 Mineral Oil (Fleet's Mineral Oil Enema) 133 ml EVERY OTHER DAY RECTAL 01/31/17 09:00 03/02/17 08:59 02/02/17 09:00 Nitroglycerin (Ntg) 0.4 mg Q5MIN X 3DOSES PRN SL Prn Chest Pain 01/29/17 17:00 02/27/17 14:59 Ondansetron HCl (Zofran) 4 mg Q6H PRN IVP Nausea & Vomiting 01/29/17 17:00 02/27/17 16:59 Polyethylene Glycol (Miralax) 17 gm BEDTIME GT 01/29/17 21:00 02/28/17 20:59 02/01/17 20:53 Polyethylene Glycol (Miralax) 17 gm DAILYPRN PRN GT Constipation 01/29/17 17:00 02/27/17 16:59 Promethazine HCl/ Codeine (Phenergan with Codeine) 5 ml Q4H PRN GT For Cough 01/29/17 17:45 02/27/17 14:59 Sennosides (Senokot) 8.6 mg DAILY ORAL 01/30/17 09:00 02/28/17 08:59 02/02/17 10:12 Temazepam (Restoril) 15 mg HSPRN PRN GT Insomnia 01/29/17 17:00 02/04/17 16:59 Vancomycin HCl (Vanco rx to dose) 1 ea DAILY PRN MISC Per rx protocol 01/30/17 09:00 02/27/17 14:59 Vancomycin HCl 1 gm/Dextrose 250 ml @ 167.007 mls/hr Q12HR@0600,1800 IVPB 01/30/17 06:00 02/04/17 05:59 02/02/17 17:17 NEIL MATHIS Feb 02, 2017 20:32
[2017-02-02] MEDS: Bactrim DS (160mg/800mg) tab GT SCH (21:43)
[2017-02-02] MEDS: Miralax 17gm pkt GT SCH (21:43)
[2017-02-03] VITALS: BP 115/75
[2017-02-03 04:00] VITALS: BP 126/99
--- NOTE | 2017-02-03 07:11 | Infectious Diseases Prog Note ---
Assessment/Plan Assessment/Plan ASSESSMENT: 26-year-old female with: Probable qS-PSA UTI Possible pneumonia - SCx S.marcescens, S.maltophilia CXR: Bilateral infiltrates versus atelectasis. Leukocytosis - persistent, stable, afebrile ( on steroids ) History of brain tumor. History of seizure disorder. History of PEG tube placement. History of paraplegia NKDA DNR PLAN: continue cefepime d# 7 / 7-10 PSA coverage, bactrim d# 2 / 5-7 steno coverage ( avoid quinolones with seizure d/o ) ( 02/02 SP IV vancomycin d# 6 ) Monitor CBC Monitor BMP. Monitor chest x-ray Subjective Allergies: Coded Allergies: No Known Allergies (Unverified , 01/28/17) Subjective remains afebrile Objective Vital Signs Last 24 Hour Vital Signs Date Time Temp Pulse Resp B/P (MAP) Pulse Ox O2 Delivery O2 Flow Rate FiO2 02/03/17 06:00 100 02/03/17 04:00 97.5 122 20 126/99 97 Nasal Cannula 3.0 02/03/17 00:00 97.3 110 18 115/75 93 Nasal Cannula 2.0 02/02/17 20:00 97.9 119 18 115/83 94 Nasal Cannula 2.0 02/02/17 19:48 Nasal Cannula 4.0 36 02/02/17 19:47 95 Nasal Cannula 4.0 02/02/17 19:46 115 18 Nasal Cannula 4.0 02/02/17 16:00 97.2 111 20 121/86 96 Room Air 02/02/17 14:45 97.0 02/02/17 12:00 97.0 108 20 113/80 95 Room Air 02/02/17 08:42 96.6 101 19 120/88 94 Room Air 02/02/17 08:37 Nasal Cannula 4.0 36 02/02/17 08:36 95 Nasal Cannula 4.0 02/02/17 08:36 98 18 Nasal Cannula 4.0 Height (Feet): 5 Height (Inches): 2.00 Weight (Pounds): 106 General Appearance: no acute distress Respiratory/Chest: no respiratory distress Cardiovascular: normal rate, regular rhythm Abdomen: normal bowel sounds, soft, non tender, non distended Current Medications Medications (Trade) Dose Ordered Sig/Valeria Route PRN Reason Start Time Stop Time Status Last Admin Dose Admin Acetaminophen (Tylenol) 650 mg Q4H PRN GT Mild Pain/Temp > 100.5 01/29/17 17:15 02/27/17 21:14 02/01/17 18:33 Al Hydroxide/Mg Hydroxide (Mylanta II) 30 ml Q6H PRN GT dyspepsia 01/29/17 21:30 02/27/17 14:59 Bisacodyl (Dulcolax) 10 mg DAILYPRN PRN RECTAL Unrelieved Constipation 01/29/17 17:00 02/28/17 16:59 01/29/17 22:02 Cefepime HCl 1 gm/ Dextrose 55 ml @ 110 mls/hr EVERY 12 HOURS IV 01/29/17 21:00 02/04/17 20:59 02/02/17 21:44 Dexamethasone (Decadron) 2 mg BID GT 01/29/17 18:00 02/27/17 17:59 02/02/17 17:16 Docusate Sodium (Colace) 100 mg THREE TIMES A DAY GT 01/29/17 18:00 02/28/17 08:59 02/02/17 17:16 Heparin Sodium (Porcine) (Heparin 5000 units/ml) 5,000 units EVERY 12 HOURS SUBQ 01/29/17 21:00 02/27/17 20:59 02/02/17 21:50 Hydromorphone HCl (Dilaudid) 1 mg Q4H PRN IVP For Pain 4-10 02/02/17 10:30 02/09/17 10:29 02/03/17 03:46 Lactulose (Cephulac) 30 gm THREE TIMES A DAY GT 01/29/17 18:00 02/28/17 08:59 02/02/17 17:15 Levetiracetam (Keppra) 1,000 mg Q12HR GT 01/29/17 21:00 02/27/17 20:59 02/02/17 21:43 Mineral Oil (Fleet's Mineral Oil Enema) 133 ml EVERY OTHER DAY RECTAL 01/31/17 09:00 03/02/17 08:59 02/02/17 09:00 Nitroglycerin (Ntg) 0.4 mg Q5MIN X 3DOSES PRN SL Prn Chest Pain 01/29/17 17:00 02/27/17 14:59 Ondansetron HCl (Zofran) 4 mg Q6H PRN IVP Nausea & Vomiting 01/29/17 17:00 02/27/17 16:59 Polyethylene Glycol (Miralax) 17 gm BEDTIME GT 01/29/17 21:00 02/28/17 20:59 02/02/17 21:43 Polyethylene Glycol (Miralax) 17 gm DAILYPRN PRN GT Constipation 01/29/17 17:00 02/27/17 16:59 Promethazine HCl/ Codeine (Phenergan with Codeine) 5 ml Q4H PRN GT For Cough 01/29/17 17:45 02/27/17 14:59 Sennosides (Senokot) 8.6 mg DAILY ORAL 01/30/17 09:00 02/28/17 08:59 02/02/17 10:12 Temazepam (Restoril) 15 mg HSPRN PRN GT Insomnia 01/29/17 17:00 02/04/17 16:59 Trimethoprim/ Sulfamethoxazole (Bactrim-DS) 1 ea Q12HR GT 02/02/17 21:00 02/09/17 20:59 02/02/17 21:43 NEIL MATHIS Feb 03, 2017 07:11
[2017-02-03] MEDS ORDERED: CEFEPIME-D1 GM/50 ML IVPB (07:58)
[2017-02-03] MEDS ORDERED: BACTRIM-DS1 EA ORAL (07:59)
[2017-02-03 08:00] VITALS: BP 126/92
[2017-02-03] MEDS: Lactulose 20gm/30ml UDC GT SCH ×2 (08:16→13:06)
[2017-02-03] MEDS: Bactrim DS (160mg/800mg) tab GT SCH (08:17)
[2017-02-03] MEDS: levETIRAcetam 500mg/5ml Liquid GT SCH (08:17)
[2017-02-03] MEDS: Cefepime HCl 1 GM in D5W 55 ML IV SCH (08:18)
[2017-02-03] MEDS: Heparin 5000 units/ml inj SUBQ SCH (08:22)
[2017-02-03] MEDS: Docusate 100mg/10ml Liq GT SCH ×2 (08:24→13:06)
[2017-02-03 12:00] VITALS: BP 124/92
[2017-02-03] MEDS ORDERED: NS 275ml ONE (15:14)
[2017-02-03] MEDS ORDERED: Tubing IV Secondary IV ONE (15:14)
--- NOTE | 2017-02-03 16:21 | Pulmonology Progress Note ---
Assessment/Plan Problems: (1) Respiratory distress (2) Pneumonia (3) Glioblastoma (4) Feeding by G-tube Assessment/Plan check labs in am dc planning improving mental status stable. continue abx med/surg laxatives. Subjective ROS Limited/Unobtainable: Yes Allergies: Coded Allergies: No Known Allergies (Unverified , 01/28/17) Objective Last 24 Hour Vital Signs Date Time Temp Pulse Resp B/P (MAP) Pulse Ox O2 Delivery O2 Flow Rate FiO2 02/03/17 12:00 97.5 111 17 124/92 95 Nasal Cannula 2.0 02/03/17 08:00 97.7 113 18 126/92 97 Nasal Cannula 2.0 02/03/17 07:14 Nasal Cannula 4.0 02/03/17 07:14 107 16 Nasal Cannula 2.0 02/03/17 07:14 99 Nasal Cannula 2.0 02/03/17 06:00 100 02/03/17 04:00 97.5 122 20 126/99 97 Nasal Cannula 3.0 02/03/17 00:00 97.3 110 18 115/75 93 Nasal Cannula 2.0 02/02/17 20:00 97.9 119 18 115/83 94 Nasal Cannula 2.0 02/02/17 19:48 Nasal Cannula 4.0 36 02/02/17 19:47 95 Nasal Cannula 4.0 02/02/17 19:46 115 18 Nasal Cannula 4.0 Intake and Output 02/03/17 02/04/17 19:00 07:00 Intake Total 110 ml Balance 110 ml IV Total 110 ml General Appearance: WD/WN HEENT: normocephalic, PERRL Respiratory/Chest: chest wall non-tender Cardiovascular: normal peripheral pulses, normal rate Abdomen: soft, non tender ZAIN SOARES Feb 03, 2017 16:21
--- NOTE | 2017-02-04 14:15 | Discharge Summary ---
Discharge Summary Hospital Course Date of Admission Jan 28, 2017 at 13:06 Date of Discharge Feb 03, 2017 at 15:15 Admitting Diagnosis hypoxia HPI Erica Mccormick is a 26 year old female who was admitted on Jan 28, 2017 at 13: 06 for Hypoxia Hospital Course dc summary #[id number] Discharge Medications Continued Medications: Acetaminophen* (Tylenol*) 120 Mg Supp.rect 650 MG RECTAL Q6HR PRN for Mild Pain/Temp > 100.5, SUPP Albuterol Sulfate (Proventil Hfa) 6.7 Gm Hfa.aer.ad 6.7 GM IH EVERY 6 HOURS PRN for Shortness of Breath Cefepime Hcl/D5w (Cefepime-Dextrose 1 Gm/50 Ml) 1 Gm/50 Ml Piggyback 1 GM IVPB QHS for 1 dose, BAG Dexamethasone (Dexamethasone) 0.5 Mg/5 Ml Solution 2 MG GT BID, ML Docusate Sodium (Docu Liquid) 50 Mg/5 Ml Liquid 100 MG GT BID, ML Doxazosin Mesylate* (Doxazosin Mesylate*) 1 Mg Tablet 1 MG GT DAILY, TAB Levetiracetam (Keppra) 100 Mg/1 Ml Solution 1000 MG GT BID, #300 ML 0 Refills Trimethoprim/Sulfamethoxazole (Bactrim Ds Tablet) 1 Each Tablet 1 TAB ORAL Q12HR for 5 Days, TAB Discharge Condition Upon Discharge: stable Discharge Disposition Patient was discharged to SNF/Subacute Facility(03) Discharge Diagnoses: Discharge Instructions Discharge Instructions Special Instructions I have been assigned to complete a D/C Summary on this account. I was not involved in the patient management Angle Robertson NP ([place]) Feb 04, 2017 14:15
--- NOTE | 2017-02-05 07:45 | Discharge Summary 2 SIG ---
DATE OF ADMISSION: 01/28/2017 DATE OF DISCHARGE: 02/03/2017 Reason for admission: 26-year-old female with history of glioblastoma multiforme (GBM) and seizure disorder presented from the [facility] for evaluation. She appeared to be tachycardic, tachypneic, and hypoxemic. She was placed on 100% nonrebreathing mask with saturation of 94%. She was tachycardic- 111 and tachypneic-24. WBC - 16.5. Lactic acid - 2.4. Urinalysis with evidence of UTI. Chest x-ray revealed possible left-sided infiltrate. Sepsis protocol was initiated. The patient was started on intensive fluid resuscitation. The patient was pancultured and started on empiric antibiotics and admitted for further management. Patient DNR/DNI status. ADMITTING DIAGNOSES: 1. Sepsis. 2. Pneumonia. 3. Urinary tract infection. 4. Dysphagia, G-tube. 5. Glioblastoma multiforme. Hospital Course: The patient was admitted. The patient was started on empiric antibiotics and IV fluids. ID consult was requested. Blood culture were negative. Urine culture revealed Pseudomonas and sputum culture revealed Serratia and Stenotrophomonas. Antibiotic regimen was optimized based on the culture and sensitivity. Followup chest x-ray still revealed infiltrate. Strict aspiration precautions were maintained. G-tube feeding was restarted. The patient was able to tolerate tube feeding. Patient did not pass bedside swallow evaluation . Speech therapist reported significant and worsening degree of oropharyngeal dysphagia. Recommended continue strict NPO, suction as needed, and continue non-oral feeding. DVT prophylaxis provided. Bowel regimen instituted. The patient was on seizure precautions. Keppra was continued. The patient was on low-dose steroid for glioblastoma. No seizure activity, while in the hospital. Pulmonary toilet was provided as needed along with antitussive on as needed basis. WBC was trending down, patient was afebrile. The patient was on steroids, and leukocytosis could be at least partially attributed to chronic steroid use. The patient with DNR/DNI status. Overall, prognosis was poor. The patient was able to be weaned down from nonrebreathing mask as her clinical condition improved to nasal cannula and then to the room air. The patient was stable for transfer back to the [facility]. FINAL DIAGNOSES: 1. Sepsis. 2. Pneumonia with Serratia and Stenotrophomonas. 3. Urinary tract infection with Pseudomonas. 4. Glioblastoma multiforme. 5. Dysphagia, gastrostomy tube. 6. Seizure disorder. DISCHARGE MEDICATIONS: See medication reconciliation list. Continue antibiotics as per ID recommendations Discharge Instructions: The patient was discharged to [facility]. Follow up with the doctor at the facility. Roosevelt Armando M.D. I have been assigned to dictate discharge summary on this account and I was not involved in the patient's management. Angle V[facility]ainoVa [facility] N.PInga DR: Aishwarya JOB#: [id number] CC: DEDE
== END 2017-02-03 15:15 | DRG 720 ==
LOC: EDBD 12:45 → EDSEX 12:45 → EMR 13:01 → 2E 13:06 → EDBEDREQ 13:24 → 2E 17:01 → 4W 01-29 16:10
DX: A41.9 Sepsis, unspecified organism (principal); J15.6 Pneumonia due to other Gram-negative bacteria; J15.8 Pneumonia due to other specified bacteria; G82.20 Paraplegia, unspecified; Z43.1 Encounter for attention to gastrostomy; C71.9 Malignant neoplasm of brain, unspecified; R13.10 Dysphagia, unspecified; N39.0 Urinary tract infection, site not specified; G40.909 Epilepsy, unspecified, not intractable, without status epilepticus; B96.5 Pseudomonas (aeruginosa) (mallei) (pseudomallei) as the cause of diseases classified elsewhere; Z66 Do not resuscitate
CPT/HCPCS: 36415; 36600; 71010; 80053; 80069; 80202; 81003; 82550; 82553; 82803; 83605; 83735; 83880; 84100; 84484; 85025; 85651; 86140; 87040; 87070; 87081; 87086; 87181; 87205; 93005; 94664; 94760